=== PATIENT | male | born 1970 | race Caucasian/White ===

== ENCOUNTER 2020-05-24 21:56 | Emergency (ER) | payer OTHER, SELFPAY ==
[2020-05-24 21:59] VITALS: PULSE 85; RESP 18; O2SAT 92; BMI 27.3
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
[2020-05-24 22:11] VITALS: RESP 20
[2020-05-24] MEDS: HYDROmorphone 1 mg/mL INJ 1 mL 2 MG IVP (22:11)
[2020-05-24] MEDS: ondansetron 2 mg/ML SDV 2 mL 4 MG IVP (22:12)
[2020-05-24] MEDS: lactated ringers 1,000 ML 999 ML IV (22:36)
[2020-05-24 22:46] VITALS: BP 153/90; PULSE 73; RESP 17; O2SAT 96
--- NOTE | 2020-05-24 23:16 | PC.NURSE ---
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
== END 2020-05-24 23:20 | disposition short-term general hospital (02) ==
LOC: ER 22:20
PROVIDERS: Emergency Provider Emergency Medicine
DX: T22.211A Burn of second degree of right forearm, initial encounter (principal); T21.02XA Burn of unspecified degree of abdominal wall, initial encounter; W39.XXXA Discharge of firework, initial encounter; T20.00XA Burn of unspecified degree of head, face, and neck, unspecified site, initial encounter; T31.0 Burns involving less than 10% of body surface
CPT/HCPCS: 12345; 96365; 96375; 99282; 99285; J1170; J2405

== ENCOUNTER 2025-06-10 14:16 | Inpatient (IN) | payer OTHER, SELFPAY ==
[2025-06-10] VITALS (35 sets, daily range): BP systolic 58–142; BP diastolic 37–94; PULSE 75–94; RESP 10–20; TEMP 36.4; O2SAT 84–100
--- NOTE | 2025-06-10 14:28 | XRR_ITS ---
PROCEDURE INFORMATION: Exam: XR Chest Exam date and time: 06/10/2025 2:33 PM Age: 54 years old Clinical indication: Other: AMS; Additional info: Possible sepsis TECHNIQUE: Imaging protocol: Radiologic exam of the chest. Views: 1 view. COMPARISON: No relevant prior studies available. FINDINGS: Lungs: Unremarkable. No consolidation. Pleural spaces: Unremarkable. No pleural effusion. No pneumothorax. Heart/Mediastinum: Unremarkable. No cardiomegaly. Bones/joints: Unremarkable. XR/XR chest 1V portable [id number] IMPRESSION: No acute findings.
--- NOTE | 2025-06-10 14:28 | CT_ITS ---
WS: [id number] CT HEAD NONCONTRAST HISTORY: ams TECHNIQUE: Contiguous axial imaging performed through the brain. Bone and soft tissue windows. Sagittal and coronal reformats reviewed. All CT scans at [facility] use at least one of these dose optimization techniques: automated exposure control; mA and/or kV adjustment per patient size (includes targeted exams where dose is matched to clinical indication); or iterative reconstruction. DLP: 1352.90 mGy.cm COMPARISON: None available. No acute intracranial hemorrhage, midline shift or mass effect. No atrophy or prior infarcts or herniation. Tiny lacunar infarct in the RIGHT basal ganglia. Ventricles: Normal size with no hydrocephalus. Paranasal sinuses: As visualized are clear. Mastoid air cells: Well pneumatized. Calvarium and scalp: Skull is intact with no soft tissue edema or swelling. CT/CT head wo con* [id number] IMPRESSION: Unremarkable CT head. No acute intracranial edema or hemorrhage.
--- NOTE | 2025-06-10 14:29 | ECG_ITS ---
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 Measurements Intervals [place] Rate: 76 P: 56 VT: 154 QRS: 29 QRSD: 119 T: 39 QT: 417 QTc: 472 Interpretive Statements SINUS RHYTHM MODERATE INTRAVENTRICULAR CONDUCTION DELAY [110+ ms QRS DURATION] No previous ECG available for comparison Electronically Signed On 06-10-2025 16:53:30 CDT by Karen Jaramillo M.D. [email or web address] [id number]
--- NOTE | 2025-06-10 14:31 | W.ED.AMS ---
HPI - Altered Mental Status General: Chief Complaint: Altered Mental Status Stated Complaint: AMS Time Seen by Provider: 06/10/25 14:17 Source: patient, family and EMS Mode of arrival: EMS Limitations: altered mental status History of Present Illness: 54-year-old male who was sent here from the [place] clinic for altered mental status. Patient states that he has felt very weak and dizzy since yesterday he is very lethargic. He is able to tell me his name where he is lives he is confused he did state that he was in 2021. History of chronic kidney disease along with diabetes patient was hypotensive with EMS is hypotensive here as well. He denies vomiting or diarrhea. Related Data Home Medications ?Medication ?Instructions ?Recorded ?Confirmed celecoxib 100 mg capsule (Celebrex) 100 mg PO DAILY 06/10/25 06/10/25 cetirizine 10 mg tablet 10 mg PO DAILY 06/10/25 06/10/25 ferrous gluconate 324 mg (38 mg 324 mg PO DAILY 06/10/25 06/10/25 iron) tablet fluticasone propionate 50 1 spray intranasal DAILY 06/10/25 06/10/25 mcg/actuation nasal spray,suspension lisinopril 10 mg tablet 10 mg PO DAILY 06/10/25 06/10/25 metformin 500 mg tablet,extended 1,000 mg PO DAILY 06/10/25 06/10/25 release 24 hr multivitamin 1 tab PO QAM 06/10/25 06/10/25 omeprazole 40 mg capsule,delayed 40 mg PO QAM 06/10/25 06/10/25 release potassium chloride 20 mEq 10 meq PO DAILY 06/10/25 06/10/25 tablet,extended release pregabalin 75 mg capsule (Lyrica) 75 mg PO BID 06/10/25 06/10/25 ropinirole 1 mg tablet 1 mg PO BEDTIME PRN restless leg 06/10/25 06/10/25 syndrome rosuvastatin 10 mg tablet 10 mg PO QPM 06/10/25 06/10/25 sertraline 100 mg tablet 200 mg PO QAM 06/10/25 06/10/25 Allergies Allergy/AdvReac Type Severity Reaction Status Date / Time No Known Allergies Allergy Verified 05/24/20 22:14 [facility] ED PFS: Medical History (Updated 06/10/25 @ 19:58 by Monique Ivan MD) No pertinent past medical history Surgical History (Updated 05/24/20 @ 22:05 by Yeny Bejarano) History of lung surgery Physical Exam Const: COMMON NORMALS: alert ORIENTATION/CONSCIOUSNESS: Yes oriented to person and Yes oriented to place; not oriented to time OTHER: Lethargic able to tell me his name where he is from he is confused on the year HENMT: COMMON NORMALS: normocephalic and atraumatic HEAD & SCALP: normocephalic and atraumatic Eye: COMMON NORMALS: conjunctivae normal CONJUNCTIVA: Yes conjunctivae normal Neck/C-Spine: COMMON NORMALS: full ROM and supple Chest: COMMONS NORMALS: normal inspection of the chest Resp: COMMON NORMALS: normal respiratory effort, No retractions, No use of accessory muscles and clear to auscultation bilaterally AUSCULTATION: clear to auscultation bilaterally Cardio: COMMON NORMALS: regular rate, regular rhythm and No murmurs present (Cardio) RATE: regular rate RHYTHM: regular rhythm GI: COMMON NORMALS: Normal to inspection, nondistended, normoactive bowel sounds present, Soft to palpation, non-tender and no masses PALPATION: Yes Soft to palpation Extremity: COMMON NORMALS: normal to inspection and full ROM Neuro: COMMON NORMALS: moves all extremities and no focal motor deficits SENSORIUM/ORIENTATION: Yes alert, Yes oriented to person, Yes oriented to place and No oriented to time SPEECH: speech normal MOTOR EXAM: 5/5 motor strength present throughout Psych: COMMON NORMALS: mental status grossly normal, Normal thought process present and cooperative THOUGHT PROCESS: Normal thought process present Skin: COMMON NORMALS: no rashes or lesions noted and no wounds GENERAL SKIN EXAM: no rashes or lesions noted Course Vital Signs: Vital signs: Vital Signs Temperature 97.6 F 06/10/25 14:21 Pulse Rate 80 06/10/25 18:30 Respiratory Rate 15 06/10/25 18:30 Blood Pressure 82/49 06/10/25 18:30 Pulse Oximetry 100 06/10/25 18:30 Oxygen Delivery Me thod Room Air 06/10/25 15:02 Oxygen Flow Rate 3 06/10/25 14:50 MDM - Altered Mental Status Medical Decision Making Patient presents here with altered mental status his mentation has improved here was hypotensive blood pressures improved with fluids along with Levophed no signs of definite infection does have acute renal failure likely causing his hypotension. He is making urine after fluids likely dehydrated. I spoke to the hospitalist will admit at this time. Also consulted nephrology Medical Records I reviewed the patient's medical records. Lab Data I reviewed the patient's lab results. 06/10/25 15:29 06/10/25 17:23 Radiology Impressions Chest X-Ray 06/10/25 14:28 IMPRESSION: No acute findings. Head CT 06/10/25 14:28 IMPRESSION: Unremarkable CT head. No acute intracranial edema or hemorrhage. Abdomen/Pelvis CT 06/10/25 16:15 IMPRESSION: 1. No obstructive uropathy. 2. Nonobstructive bilateral nephrolithiasis. 3. Notiveros catheter is appropriately positioned. Bladder is decompressed, limiting assessment of the wall. 4. Marked pancreatic atrophy and calcification consistent with chronic pancreatitis. Laboratory Results WBC 5.70 10^3/uL (3.29-11.43) 06/10/25 15:29 Corrected WBC Cancelled 06/10/25 15:07 RBC 3.87 10^6/uL (3.85-5.65) 06/10/25 15:29 Hgb 10.90 g/dL (11.27-16.99) L 06/10/25 15:29 Hct 33.8 % (37-53) L 06/10/25 15:29 MCV 87.3 fl (82-101) 06/10/25 15:29 MCH 28.2 pg (27-33) 06/10/25 15:29 MCHC 32.2 g/dL (30-55) 06/10/25 15:29 RDW 14.2 % (12.1-15.1) 06/10/25 15:29 Plt Count 205 10^3/cmm (157-399) 06/10/25 15:29 MPV 10.6 fL (7.4-10.4) H 06/10/25 15:29 Gran % Cancelled 06/10/25 15:07 Neut % (Auto) 77.0 % 06/10/25 15:29 Lymph % (Auto) 14.9 % 06/10/25 15:29 [place]ardo % (Auto) 5.8 % 06/10/25 15:29 Eos % (Auto) 1.2 % 06/10/25 15:29 Baso % (Auto) 0.7 % 06/10/25 15:29 Neut # (Auto) 4.39 10^3/uL (1.8-7.7) 06/10/25 15: Lymph # (Auto) 0.9 10^3/uL (0.8-4.8) 06/10/25 15: [place] # (Auto) 0.3 10^3/uL (0.2-0.9) 06/10/25 15: Eos # (Auto) 0.1 10^3/uL (0.0-0.8) 06/10/25 15: Baso # (Auto) 0.0 10^3/uL (0.0-0.1) 06/10/25 15: Absolute Gran (auto) Cancelled 06/10/25 15:07 Nucleated RBC % (auto) 0 % 06/10/25 15: Nucleated RBCs # 0.0 /100WBC 06/10/25 15: PT 53.70 SECONDS (12.1-14.9) H 06/10/25 15: INR 5.64 (0.8-1.2) H* 06/10/25 15:29 Specimen Type Arterial 06/10/25 14:55 Sample Site Brachial, right 06/10/25 14:55 ABG pH 7.12 (7.35-7.45) L* 06/10/25 14:55 ABG pCO2 34.0 mmHg (35-45) L 06/10/25 14:55 ABG pO2 120.0 mmHg (80.0-100.0) H 06/10/25 14:55 ABG PO2/FiO2 Ratio 571 06/10/25 14:55 ABG HCO3 11.1 mmol/L (22-26) L 06/10/25 14:55 ABG Base Excess -17.0 mmol/L (-2.0-2.0) L 06/10/25 14:55 Jimmy Test N/a 06/10/25 14:55 Hematocrit 34.1 % (42-52) L 06/10/25 14:55 Hgb O2 Saturation 96.8 % (95-100) 06/10/25 14:55 Carboxyhemoglobin 0.4 %THgb (0.4-20.1) 06/10/25 14:55 Methemoglobin 0.8 % (0.4-1.5) 06/10/25 14:55 Total Hemoglobin 11.1 g/dL (14-18) L 06/10/25 14:55 O2 Delivery Device Room air 06/10/25 14:55 FiO2 21.0 % 06/10/25 14:55 Lift Operator ID glc 06/10/25 14:55 Sodium 140 mmol/L (136-145) 06/10/25 17:23 Potassium 5.3 mmol/L (3.5-5.1) H 06/10/25 17:23 Chloride 103 mmol/L (98-107) 06/10/25 17:23 Carbon Dioxide 11 mmol/L (22-29) L 06/10/25 17:23 Anion Gap 31.3 (5-19) H 06/10/25 17:23 BUN 81 mg/dL (6-20) H 06/10/25 17:23 Creatinine 10.9 mg/dL (0.7-1.2) H* 06/10/25 17:23 GFR Calculation 5.0 mL/min (90-130) L 06/10/25 17:23 Glucose 112 mg/dL (65-115) 06/10/25 17:23 Calculated Osmolality 315 mOsm/kg (285-295) H 06/10/25 17:23 Lactic Acid Cancelled 06/10/25 15:07 Lactate 0.8 mmol/L (0.5-2.2) 06/10/25 15:29 Calcium 6.9 mg/dL (8.5-10.5) L 06/10/25 17:23 Magnesium 1.8 mg/dL (1.7-2.3) 06/10/25 17:23 Total Bilirubin 0.2 mg/dL (0.15-1.2) 06/10/25 17:23 AST 15 U/L (0-40) 06/10/25 17:23 ALT 15 U/L (0-41) 06/10/25 17:23 Alkaline Phosphatase 100 U/L (40-130) 06/10/25 17:23 Ammonia 40 umol/L (16-60) 06/10/25 17:23 Creatine Kinase 153 U/L (39-308) 06/10/25 17:23 Troponin T Baseline 133 ng/L (0-15) H* 06/10/25 15:29 Troponin T 120 Minute 126.3 ng/L (0-15) H 06/10/25 17:23 Delta Troponin T -6.7 ABS# (0-10) L 06/10/25 17:23 Total Protein 5.7 g/dL (6.6-8.7) L 06/10/25 17:23 Albumin 3.2 g/dL (3.5-5.2) L 06/10/25 17:23 Globulin 2.5 g/dL (1.3-4.6) 06/10/25 17: TSH 0.96 uIU/mL (0.27-4.20) 06/10/25 17:23 Urine Color Red (Yellow) A 06/10/25 15: Urine Appearance Turbid (CLEAR) A 06/10/25 15: Urine pH 5.0 (5-7) 06/10/25 15: Ur Specific [place] 1.025 (1.005-1.030) 06/10/25 15:29 Urine Protein 3+ (Negative) A 06/10/25 15:29 Urine Glucose (UA) Trace (Normal) H 06/10/25 15: Urine Ketones Trace (Negative) 06/10/25 15: Urine Blood 3+ (Negative) A 06/10/25 15:29 Urine Nitrate Negative (Negative) 06/10/25 15: Urine Bilirubin Negative (Negative) 06/10/25 15: Urine Urobilinogen 0.2 mg/dL (Negative) 06/10/25 15:29 Ur Leukocyte Esterase 1+ (Negative) A 06/10/25 15:29 Urine RBC >100 /hpf (0-2) H 06/10/25 15:29 Urine WBC 11-20 /hpf (0-5) H 06/10/25 15:29 Ur Squamous Epith Cells 0-5 /hpf (0-5) 06/10/25 15:29 Amorphous Sediment Not Reportable 06/10/25 15:29 Urine Bacteria None seen /hpf (NONE) 06/10/25 15:29 Hyaline Casts 35.98 /lpf 06/10/25 15:29 Urine Opiates Screen Negative ng/mL (Negative) 06/10/25 15:29 Ur Barbiturates Screen Negative ng/mL (Negative) 06/10/25 15:29 Ur Phencyclidine Scrn Negative ng/mL (Negative) 06/10/25 15:29 Ur Amphetamines Screen Positive ng/mL (Negative) H 06/10/25 15:29 U Benzodiazepines Scrn Negative ng/mL (Negative) 06/10/25 15:29 Urine Cocaine Screen Negative ng/mL (Negative) 06/10/25 15:29 U Marijuana (THC) Screen Negative ng/mL (Negative) 06/10/25 15:29 Ethyl Alcohol < 10 mg/dL (0-10) 06/10/25 17:23 All radiology interpretation(s) finalized by discharge EKG Data EKG 1: I personally reviewed and interpreted this EKG as follows: EKG interpretation date: 06/10/25 EKG interpretation time: 15:01 Interpretation: nsr hr [address] elevation qrs 119 qtc 448 Discharge Plan Discharge Patient Disposition: Admitted As Inpatient Admit Provider: Estefany Gan Clinical Impression: Altered mental status, Acute renal failure, Metabolic acidosis Condition: Stable Coding Level of Care Code ED Spice Blender for Chg Sharif
--- NOTE | 2025-06-10 15:03 | PC.NURSE ---
PATIENT PLACED ON 3 L NC DUE TO LOWER O2 SATURATION.
[2025-06-10 15:07] LABS: ABG PCO2 34.0 mmHg (35-45); Arterial Blood Gas Hematocrit 34.1 % (42-52); Blood Gas Operator Identificat glc; Blood Gas Sample Site Brachial, right; Blood Gas Sample Type Arterial; Carboxyhemoglobin 0.4 %THgb (0.4-20.1); HCO3 ABG 11.1 mmol/L (22-26); Methemoglobin 0.8 % (0.4-1.5); PO2 ABG 120.0 mmHg (80.0-100.0); PO2 FiO2 Ratio Arterial Blood 571
[2025-06-10 15:09] LABS: ABG PH Result 7.12 (7.35-7.45)
--- NOTE | 2025-06-10 15:19 | PC.PHAR ---
[facility] 06/10/25 3:17pm
[2025-06-10 15:39] LABS: Hematocrit 33.8 % (37-53); Hemoglobin 10.90 g/dL (11.27-16.99); Mean Corpuscular HGB Conc 32.2 g/dL (30-55); Mean Corpuscular Hemoglobin 28.2 pg (27-33); Mean Corpuscular Volume 87.3 fl (82-101); Nucleated Red Blood Cells % 0 %; Platelet Count 205 10^3/cmm (157-399); Red Blood Count 3.87 10^6/uL (3.85-5.65); White Blood Count 5.70 10^3/uL (3.29-11.43)
[2025-06-10 15:43] LABS: Glucose Urine UA Trace (Normal); Nitrate Urine Negative (Negative); Specific Gravity, Urine 1.025 (1.005-1.030)
[2025-06-10] MEDS: piperacillin-tazobactam 3.375 GM in sodium chloride 0.9% (plus) 50 ML IV (15:45)
[2025-06-10 15:46] LABS: Add Urine Microscopic? YES
[2025-06-10 15:50] LABS: PCP Screen Urine Negative (Negative)
[2025-06-10] MEDS: VANCOMYCIN ADD-Vantage 1,000 MG in 0.9% NaCl ADD-Vantage 250 ML 250 MG IV (15:53)
[2025-06-10 15:54] LABS: Prothrombin Time 53.70 SECONDS (12.1-14.9)
[2025-06-10 16:01] LABS: Lactate (Lactic Acid level) 0.8 mmol/L (0.5-2.2)
[2025-06-10 16:04] LABS: Troponin(5th) Baseline 133 ng/L (0-15)
[2025-06-10 16:11] LABS: UA Slide Review UA Slide Review Perf
--- NOTE | 2025-06-10 16:15 | CTR_ITS ---
PROCEDURE INFORMATION: Exam: CT Abdomen And Pelvis Without Contrast Exam date and time: 06/10/2025 4:58 PM Age: 54 years old Clinical indication: Other: Hematuria TECHNIQUE: Imaging protocol: Computed tomography of the abdomen and pelvis without contrast. Radiation optimization: All CT scans at this facility use at least one of these dose optimization techniques: automated exposure control; mA and/or kV adjustment per patient size (includes targeted exams where dose is matched to clinical indication); or iterative reconstruction. COMPARISON: CR XR chest 1V portable [id number] 06/10/2025 2:33 PM RADIATION DOSE METRICS: Total DLP (mGy-cm): 503.43 FINDINGS: Lungs: There is subsegmental atelectasis in the lung bases. Liver: The liver is normal. Gallbladder and biliary ducts: The gallbladder is normal. There is no biliary dilation. Pancreas: There is marked atrophy of the pancreas. There is multifocal dystrophic calcification in the pancreatic parenchyma. There is moderate diffuse dilation of the pancreatic duct measuring up to 7 mm in the neck. No sign of acute pancreatic inflammation. Spleen: The spleen is unremarkable. Adrenal glands: The adrenal glands are unremarkable. Kidneys and ureters: There are multiple 3-5 mm nonobstructive stones in both kidneys. There is no hydronephrosis or ureteral dilation. No ureteral stones. Stomach and bowel: The stomach is unremarkable. The small bowel is nondilated. The colon is unremarkable. Appendix: The appendix is normal. Intraperitoneal space: There is no free air or significant intraperitoneal free fluid. Vasculature: There is moderate aortic atherosclerotic disease. Lymph nodes: There is no lymphadenopathy in the retroperitoneum, mesentery, pelvis or inguinal regions. Urinary bladder: The bladder is decompressed. The Ontiveros catheter is appropriately positioned with the bulb and tip within the bladder lumen. Reproductive: The prostate and seminal vesicles are unremarkable. Bones/joints: There is mild degenerative disease in the lumbar spine. The pelvis and hips are unremarkable. Soft tissues: The abdominal wall is intact. CT/CT kidney stone [id number] IMPRESSION: 1. No obstructive uropathy. 2. Nonobstructive bilateral nephrolithiasis. 3. Ontiveros catheter is appropriately positioned. Bladder is decompressed, limiting assessment of the wall. 4. Marked pancreatic atrophy and calcification consistent with chronic pancreatitis.
--- NOTE | 2025-06-10 16:30 | ECG_ITS ---
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 Measurements Intervals [place] Rate: 82 P: 61 [place]: 180 QRS: 26 QRSD: 117 T: 45 QT: 413 QTc: 485 Interpretive Statements SINUS RHYTHM MODERATE INTRAVENTRICULAR CONDUCTION DELAY [110+ ms QRS DURATION] Compared to ECG 06/10/2025 15:01:27 No significant changes Electronically Signed On 06-10-2025 17:05:08 CDT by Karen Jaramillo M.D. [email or web address]
[2025-06-10 18:09] LABS: INR 5.64 (0.8-1.2)
[2025-06-10] MEDS: norepinephrine 4 MG/250 ML BAG 30 MG IV (18:23)
[2025-06-10 18:25] LABS: Alanine Aminotransferase 15 U/L (0-41); Albumin Level 3.2 g/dL (3.5-5.2); Alkaline Phosphatase 100 U/L (40-130); Calcium 6.9 mg/dL (8.5-10.5); Carbon Dioxide 11 mmol/L (22-29); Chloride 103 mmol/L (98-107); Creatinine Clr Calc Pharmacy 7.7756; Globulin 2.5 g/dL (1.3-4.6); Glucose 112 mg/dL (65-115); Magnesium 1.8 mg/dL (1.7-2.3); Osmolality Calculated 315 mOsm/kg (285-295); Sodium 140 mmol/L (136-145); Thyroid Stimulating Hormone 0.96 uIU/mL (0.27-4.20); Total Protein 5.7 g/dL (6.6-8.7)
[2025-06-10 18:26] LABS: Troponin 5 2HR 126.3 ng/L (0-15); Troponin 5 2HR Delta -6.7 ABS# (0-10)
[2025-06-10 18:30] LABS: Ammonia 40 umol/L (16-60)
[2025-06-10 18:43] LABS: Alcohol Level < 10 mg/dL (0-10); Blood Urea Nitrogen 81 mg/dL (6-20)
[2025-06-10 18:44] LABS: Anion Gap 31.3 (5-19); Potassium 5.3 mmol/L (3.5-5.1)
[2025-06-10 18:45] LABS: Aspartate Amino Transferase 15 U/L (0-40)
--- NOTE | 2025-06-10 20:28 | USR_ITS ---
PROCEDURE INFORMATION: Exam: US Retroperitoneal, Complete, Kidneys and Bladder Exam date and time: 06/10/2025 8:39 PM Age: 54 years old Clinical indication: Other: Elevated bun and creatinine; Additional info: Rayray TECHNIQUE: Imaging protocol: Real-time ultrasound of the retroperitoneum with image documentation. Complete exam focused on the bilateral kidneys and urinary bladder. COMPARISON: CT kidney stone [id number] 06/10/2025 4:58 PM FINDINGS: Right kidney: The right kidney is unremarkable. Cortical thickness and echotexture is normal. There is no hydronephrosis. No visible stones. The right kidney measures 9.5 cm in length. Left kidney: The left kidney is unremarkable. Cortical thickness and echotexture is normal. There is no hydronephrosis. No visible stones. The left kidney measures 10.6 cm in length. Urinary bladder: The bladder is nondistended. There is a Ontiveros catheter bulb in the bladder lumen. US/US renal BI* [id number] IMPRESSION: No pathologic findings. Known bilateral renal stones are not visible on this exam.
--- NOTE | 2025-06-10 21:47 | PM.HP ---
Providers/Chief Complaint Admitting Physician: Estefany Gan MD Primary Care Provider: KYLIE Duncan Chief Complaint: AMS History of Present Illness Olivier Isaac is a 54 year old male with a past medical history of diabetes mellitus reports being on metformin and insulin, hypertension on lisinopril, dyslipidemia, history of substance abuse, presenting to the emergency room with complaints of generalized weakness over the past 2 to 3 days, found to be confused and altered upon presenting to the [place] [facility] earlier today. Patient states he had been feeling weak and lethargic for the past 2 to 3 days. Patient was hypotensive upon arrival with a blood pressure of 58/37 mmHg. This is improved to 129/60 mmHg at the time of my assessment after having received IV fluid bolus and being started on Levophed in the emergency room. He denies any recent cough, chest pain, dyspnea, abdominal pain nausea vomiting or diarrhea. Has a history of nephrolithiasis, however on CT today he is not found to have any gross obstruction. Labs in the emergency room were notable for acute renal failure with creatinine at 10.1, findings of metabolic acidosis and hyperkalemia. Patient states he has been working outdoors over the past 2 to 3 days. He denies any recent IV drug use, however his family is bedside reports he was around other family members that were abusing meth this past Tuesday. Review of Systems General: Reports: 10 or more systems reviewed and unremarkable except in HPI and below Const: Denies: fever(s), chills or body aches Eyes: Denies: change in vision, blurry vision or photophobia ENMT: Reports: hoarseness; Denies: throat pain, enlarged tonsils, odynophagia or nasal congestion Card: Denies: chest pain, palpitations, irregular heart rhythm, edema, swelling of feet/ankles, lightheadedness, pre-syncope, dyspnea on exertion or orthopnea Resp: Denies: dyspnea, productive cough, non-productive cough, wheezing, stridor, pain on inspiration, change in phlegm color, hemoptysis or chest congestion GI: Denies: abdominal pain, nausea, vomiting, hematemesis, coffee ground emesis, dysphagia, heartburn, diarrhea, constipation, GI cramping, change in stool character, hematochezia or melena : Denies: flank pain, dysuria, urinary frequency, urinary urgency, urinary hesitancy or hematuria Musc: Denies: neck pain, back pain, extremity pain, joint swelling, joint warmth or deformity Neuro: Denies: headache(s), numbness in extremities, weakness in extremities, sensory changes, difficulty walking, frequent falls, dizziness, vertigo, behavioral changes, Slurred speech present or seizure-like activity Psych: Denies: anxiety, depression, suicidal ideation or homicidal ideation Endo: Denies: polyuria, polydipsia, tired all the time, cold intolerance or hot flashes Scott/Lymph: Denies: easy bruising or easy bleeding Medications/Allergies Home Medications ?Medication ?Instructions ?Recorded ?Confirmed ?Last Taken ?Type celecoxib 100 mg capsule (Celebrex) 100 mg PO DAILY 06/10/25 06/10/25 06/10/25 History cetirizine 10 mg tablet 10 mg PO DAILY 06/10/25 06/10/25 06/10/25 History ferrous gluconate 324 mg (38 mg 324 mg PO DAILY 06/10/25 06/10/25 06/10/25 History iron) tablet fluticasone propionate 50 1 spray intranasal DAILY 06/10/25 06/10/25 06/10/25 History mcg/actuation nasal spray,suspension lisinopril 10 mg tablet 10 mg PO DAILY 06/10/25 06/10/25 06/10/25 History metformin 500 mg tablet,extended 1,000 mg PO DAILY 06/10/25 06/10/25 06/10/25 History release 24 hr multivitamin 1 tab PO QA 06/10/25 06/10/25 06/10/25 History omeprazole 40 mg capsule,delayed 40 mg PO QAM 06/10/25 06/10/25 06/10/25 History release potassium chloride 20 mEq 10 meq PO DAILY 06/10/25 06/10/25 06/10/25 History tablet,extended release pregabalin 75 mg capsule (Lyrica) 75 mg PO BID 06/10/25 06/10/25 06/10/25 History ropinirole 1 mg tablet 1 mg PO BEDTIME PRN restless leg 06/10/25 06/10/25 Unknown History syndrome rosuvastatin 10 mg tablet 10 mg PO QPM 06/10/25 06/10/25 06/09/25 History sertraline 100 mg tablet 200 mg PO QAM 06/10/25 06/10/25 06/10/25 History Allergies Allergy/AdvReac Type Severity Reaction Status Date / Time No Known Allergies Allergy Verified 05/24/20 22:14 PFSH Acute PFSH: Medical History (Updated 06/11/25 @ 01:07 by Estefany Gan MD) No pertinent past medical history Surgical History (Updated 05/24/20 @ 22:05 by Yeny Bejarano) History of lung surgery Vitals/I&O/Wt Last Vital Signs Temp 97.6 F 06/10/25 14:21 Pulse 90 06/10/25 20:14 Resp 16 06/10/25 20:14 BP 124/59 06/10/25 20:14 Pulse Ox 98 06/10/25 20:14 O2 Del Method Room Air 06/10/25 15:02 O2 Flow Rate 3 06/10/25 14:50 06/10/25 06/10/25 06/10/25 06:59 14:59 22:59 Intake Total 3422.8 / 3422.8 Balance 3422.8 / 3422.8 Weight last 48 hrs Weight 70.76 kg Physical Exam Narrative: General: ill appearing, dehydrated, AO x3 HEENT: PERRLA, pupils bilaterally equal and reactive, pallors not present Chest: Normal vesicular breath sounds, no added sounds, equal good air entry bilaterally CVS: S1-S2 regular, no murmurs, no tachycardia, no gallops, no rubs Abdomen: Soft, nontender, no organomegaly, bowel sounds present Neuro: No focal deficits, no facial deformity, moves all extremities in bed Extremities: No edema clubbing or cyanosis Urinary Catheter Management: Ontiveros: Cath Placed During This Visit: yes Reason for Continuing Indwelling Catheter: Acute Urinary Retention or Obstruction Urinary Catheter Date of Insertion: 06/10/25 Urinary Catheter Time of Insertion: 15:33 Data 06/10/25 15:29 06/10/25 22:57 Micro: Microbiology 06/10/25 14:57 Blood Culture - Preliminary Blood SPECIMEN COLLECTED 06/10/25 15:07 Blood Culture - Preliminary Blood SPECIMEN COLLECTED Other data: Radiology Impressions Chest X-Ray 06/10/25 14:28 IMPRESSION: No acute findings. Head CT 06/10/25 14:28 IMPRESSION: Unremarkable CT head. No acute intracranial edema or hemorrhage. Abdomen/Pelvis CT 06/10/25 16:15 IMPRESSION: 1. No obstructive uropathy. 2. Nonobstructive bilateral nephrolithiasis. 3. Ontiveros catheter is appropriately positioned. Bladder is decompressed, limiting assessment of the wall. 4. Marked pancreatic atrophy and calcification consistent with chronic pancreatitis. Renal Ultrasound 06/10/25 20:28 IMPRESSION: No pathologic findings. Known bilateral renal stones are not visible on this exam. Laboratory Results WBC 5.70 10^3/uL (3.29-11.43) 06/10/25 15:29 Corrected WBC Cancelled 06/10/25 15:07 RBC 3.87 10^6/uL (3.85-5.65) 06/10/25 15:29 Hgb 10.90 g/dL (11.27-16.99) L 06/10/25 15:29 Hct 33.8 % (37-53) L 06/10/25 15:29 MCV 87.3 fl (82-101) 06/10/25 15:29 MCH 28.2 pg (27-33) 06/10/25 15:29 MCHC 32.2 g/dL (30-55) 06/10/25 15:29 RDW 14.2 % (12.1-15.1) 06/10/25 15:29 Plt Count 205 10^3/cmm (157-399) 06/10/25 15:29 MPV 10.6 fL (7.4-10.4) H 06/10/25 15:29 Gran % Cancelled 06/10/25 15:07 Neut % (Auto) 77.0 % 06/10/25 15:29 Lymph % (Auto) 14.9 % 06/10/25 15:29 [place] % (Auto) 5.8 % 06/10/25 15:29 Eos % (Auto) 1.2 % 06/10/25 15:29 Baso % (Auto) 0.7 % 06/10/25 15:29 Neut # (Auto) 4.39 10^3/uL (1.8-7.7) 06/10/25 15:29 Lymph # (Auto) 0.9 10^3/uL (0.8-4.8) 06/10/25 15:29 [place] # (Auto) 0.3 10^3/uL (0.2-0.9) 06/10/25 15:29 Eos # (Auto) 0.1 10^3/uL (0.0-0.8) 06/10/25 15: Baso # (Auto) 0.0 10^3/uL (0.0-0.1) 06/10/25 15:29 Absolute Gran (auto) Cancelled 06/10/25 15:07 Nucleated RBC % (auto) 0 % 06/10/25 15: Nucleated RBCs # 0.0 /100WBC 06/10/25 15:29 PT 53.70 SECONDS (12.1-14.9) H 06/10/25 15: INR 5.64 (0.8-1.2) H* 06/10/25 15:29 Specimen Type Arterial 06/10/25 14:55 Sample Site Brachial, right 06/10/25 14:55 ABG pH 7.12 (7.35-7.45) L* 06/10/25 14:55 ABG pCO2 34.0 mmHg (35-45) L 06/10/25 14:55 ABG pO2 120.0 mmHg (80.0-100.0) H 06/10/25 14:55 ABG PO2/FiO2 Ratio 571 06/10/25 14:55 ABG HCO3 11.1 mmol/L (22-26) L 06/10/25 14:55 ABG Base Excess -17.0 mmol/L (-2.0-2.0) L 06/10/25 14:55 Jimmy Test N/a 06/10/25 14:55 Hematocrit 34.1 % (42-52) L 06/10/25 14:55 Hgb O2 Saturation 96.8 % (95-100) 06/10/25 14:55 Carboxyhemoglobin 0.4 %THgb (0.4-20.1) 06/10/25 14:55 Methemoglobin 0.8 % (0.4-1.5) 06/10/25 14:55 Total Hemoglobin 11.1 g/dL (14-18) L 06/10/25 14:55 O2 Delivery Device Room air 06/10/25 14:55 FiO2 21.0 % 06/10/25 14:55 Adjunct Physics Instructor ID glc 06/10/25 14:55 Sodium 135 mmol/L (136-145) L 06/10/25 22:57 Potassium 5.4 mmol/L (3.5-5.1) H 06/10/25 22:57 Chloride 100 mmol/L (98-107) 06/10/25 22:57 Carbon Dioxide 12 mmol/L (22-29) L 06/10/25 22:57 Anion Gap 28.4 (5-19) H 06/10/25 22:57 BUN 82 mg/dL (6-20) H* 06/10/25 22:57 Creatinine 10.4 mg/dL (0.7-1.2) H* 06/10/25 22:57 GFR Calculation 5.3 mL/min (90-130) L 06/10/25 22:57 Glucose 171 mg/dL (65-115) H 06/10/25 22:57 Calculated Osmolality 309 mOsm/kg (285-295) H 06/10/25 22:57 Lactic Acid Cancelled 06/10/25 15:07 Lactate 0.8 mmol/L (0.5-2.2) 06/10/25 15:29 Calcium 7.8 mg/dL (8.5-10.5) L 06/10/25 22:57 Phosphorus 9.2 mg/dL (2.5-4.5) H* 06/10/25 22:57 Magnesium 1.8 mg/dL (1.7-2.3) 06/10/25 17:23 Total Bilirubin 0.2 mg/dL (0.15-1.2) 06/10/25 17:23 AST 15 U/L (0-40) 06/10/25 17:23 ALT 15 U/L (0-41) 06/10/25 17:23 Alkaline Phosphatase 100 U/L (40-130) 06/10/25 17:23 Ammonia 40 umol/L (16-60) 06/10/25 17:23 Creatine Kinase 199 U/L (39-308) 06/10/25 22:57 Troponin T Baseline 133 ng/L (0-15) H* 06/10/25 15:29 Troponin T 120 Minute 126.3 ng/L (0-15) H 06/10/25 17:23 Delta Troponin T -6.7 ABS# (0-10) L 06/10/25 17:23 Troponin T Hi Sens 6Hr 116.6 ng/L (0-15) H 06/10/25 22:57 Troponin T Hi Sens 6Hr Delta -16.4 ng/L (0-12) L 06/10/25 22:57 Total Protein 5.7 g/dL (6.6-8.7) L 06/10/25 17:23 Albumin 3.2 g/dL (3.5-5.2) L 06/10/25 17:23 Globulin 2.5 g/dL (1.3-4.6) 06/10/25 17:23 TSH 0.96 uIU/mL (0.27-4.20) 06/10/25 17:23 Urine Color Red (Yellow) A 06/10/25 15: Urine Appearance Turbid (CLEAR) A 06/10/25 15: Urine pH 5.0 (5-7) 06/10/25 15:29 Ur Specific [place] 1.025 (1.005-1.030) 06/10/25 15: Urine Protein 3+ (Negative) A 06/10/25 15:29 Urine Glucose (UA) Trace (Normal) H 06/10/25 15:29 Urine Ketones Trace (Negative) 06/10/25 15: Urine Blood 3+ (Negative) A 06/10/25 15: Urine Nitrate Negative (Negative) 06/10/25 15: Urine Bilirubin Negative (Negative) 06/10/25 15:29 Urine Urobilinogen 0.2 mg/dL (Negative) 06/10/25 15:29 Ur Leukocyte Esterase 1+ (Negative) A 06/10/25 15:29 Urine RBC >100 /hpf (0-2) H 06/10/25 15:29 Urine WBC 11-20 /hpf (0-5) H 06/10/25 15:29 Ur Squamous Epith Cells 0-5 /hpf (0-5) 06/10/25 15: Amorphous Sediment Not Reportable 06/10/25 15:29 Urine Bacteria None seen /hpf (NONE) 06/10/25 15:29 Hyaline Casts 35.98 /lpf 06/10/25 15:29 U Random Total Protein 24 mg/dL 06/10/25 21:53 Urine Creatinine 65 mg/dL (39-259) 07/21/25 21:53 Urine Opiates Screen Negative ng/mL (Negative) 06/10/25 15:29 Ur Barbiturates Screen Negative ng/mL (Negative) 06/10/25 15:29 Ur Phencyclidine Scrn Negative ng/mL (Negative) 06/10/25 15:29 Ur Amphetamines Screen Positive ng/mL (Negative) H 06/10/25 15:29 U Benzodiazepines Scrn Negative ng/mL (Negative) 06/10/25 15:29 Urine Cocaine Screen Negative ng/mL (Negative) 06/10/25 15:29 U Marijuana (THC) Screen Negative ng/mL (Negative) 06/10/25 15:29 Ethyl Alcohol < 10 mg/dL (0-10) 06/10/25 17:23 Complement C3 133 mg/dL (90-180) 06/10/25 22:57 Complement C4 31 mg/dL (10-40) 06/10/25 22:57 A&P Assessment and plan 1. Acute renal failure: Patient with past medical history as outlined above presenting to the hospital today with 2 to 3 days of generalized weakness, altered mentation and lethargy found to have acute renal failure with creatinine at 10.0 with evidence of metabolic acidosis. CT of the abdomen and pelvis without any obstruction along the urinary tract. Has a history of nephrolithiasis, however no obstructing calculus is noted today. Patient states that he has been working outside and may potentially be dehydrated. Baseline creatinine is not available. Patient was hypotensive upon arrival, received 2 L of IV fluid bolus and has been started on sodium bicarbonate infusion at 100 cc an hour. Urine drug screen is positive for methamphetamines, potentially acute renal failure may be related to drug abuse. Hold lisinopril and other nephrotoxic medications. Nephrology has been consulted, appreciate recommendations to add C3-C4, PRITI, ANCA, anti-GBM, urine protein creatinine ratio, SPEP and hepatitis panel Ontiveros catheter placed to measure accurate output. No bladder outlet obstruction encountered. 2. Metabolic acidosis: As a result of acute renal failure 3. Altered mental status: Is currently appears to be improving. Patient is alert awake oriented x 3, able to answer orientation questions and speaks in few short sentences however speaks slowly, needs encouragement. 4. Hyperkalemia: Related to acute renal failure He has received Kayexalate, Will repeat BNP to assess for improvement 5. Diabetes mellitus: Insulin sliding scale low-dose check HbA1c 6. Elevated troponin: Baseline troponin at 126, 6-hour at 116, downtrending at 0216 hrs. EKG without any acute ST-T wave changes Patient denies any chest pain Suspect the troponin elevation is related to acute renal failure Will check echocardiogram to rule out any cardiac abnormality such as cardiomyopathy which may be contributing to renal failure. Clinically patient appearing to be euvolemic at this time 7. Elevated INR: Deranged INR at 5.17 Uncertain etiology at this time CT abdomen without any evidence of cirrhosis. Incidental note made of pancreatitis, however patient and mother both deny any history of chronic pancreatitis. Holding off on anticoagulation for DVT prophylaxis for now until INR improves. 8. Hypotension: May be related to dehydration Urine analysis with greater than 100 RBCs, 3+ blood, 1+ leukocyte Estrace, 11-20 WBCs. Will await urine culture. Patient denies any symptoms of dysuria. Started on ceftriaxone 1 g IV every 24 hours while undergoing infectious source evaluation. Chest x-ray, abdomen pelvis CT without any acute abnormality Pending blood culture Continue IV fluids as noted above. Levophed to maintain MAP greater than 65 mmHg. Plan: DVT prophylaxis: SCDs only, no anticoagulation due to deranged INR Full code PDMP PDMP Reviewed: Not Reviewed Attestations Medical Necessity Statement*: Greater than 2 midnight stay is anticipated Coding Level of Care Code Acute Code for Chg Fwd High MDM includes number and complexity of problems actively addressed during encounter, amount and/or complexity of data reviewed/ordered and described risk of complication, morbidity or mortality of management as documented Diagnoses Acute renal failure N17.9 Metabolic acidosis E87.20 Altered mental status R41.82 Hyperkalemia E87.5 Diabetes mellitus E11.9 Elevated troponin R79.89 Elevated INR R79.1 Hypotension I95.9
--- NOTE | 2025-06-10 21:51 | PM.CONSULT ---
Providers/Reason For Consult Consulting Physician/Specialty*: kommana/Nephrology Reason for Consult*: AXEL Attending Physician: Estefany Gan MD Primary Care Provider: KYLIE Duncan History of Present Illness History of Present Illness Olivier Isaac is a 54 year old male with past medical history of hypertension, diabetes, dyslipidemia, chronic pain, GERD-usually followed at [facility] . He was seen at [facility] today and was noted to be confused and was sent to the ER for further evaluation. No prior labs available in our system. Patient denies having any prior history of CKD. On presentation he was hypotensive currently on Levophed and is admitted to ICU. Lab data is significant for hemoglobin of 10.9, potassium of 5.3 bicarbonate level of 11, creatinine was 10 with a BUN of 81. Patient reports taking Celebrex for the last 6 months about 1 pill a day. Also reports smoking weed joint few days ago and he was told that it could have been laced with meth and since then patient developed severe nausea with poor p.o. intake. Baseline labs not available. Patient's mother at bedside who provided history. Review of Systems Narrative: Other review of systems negative. Medications/Allergies Home Medications ?Medication ?Instructions ?Recorded ?Confirmed ?Last Taken ?Type celecoxib 100 mg capsule (Celebrex) 100 mg PO DAILY 06/10/25 06/10/25 06/10/25 History cetirizine 10 mg tablet 10 mg PO DAILY 06/10/25 06/10/25 06/10/25 History ferrous gluconate 324 mg (38 mg 324 mg PO DAILY 06/10/25 06/10/25 06/10/25 History iron) tablet fluticasone propionate 50 1 spray intranasal DAILY 06/10/25 06/10/25 06/10/25 History mcg/actuation nasal spray,suspension lisinopril 10 mg tablet 10 mg PO DAILY 06/10/25 06/10/25 06/10/25 History metformin 500 mg tablet,extended 1,000 mg PO DAILY 06/10/25 06/10/25 06/10/25 History release 24 hr multivitamin 1 tab PO QAM 06/10/25 06/10/25 06/10/25 History omeprazole 40 mg capsule,delayed 40 mg PO QAM 06/10/25 06/10/25 06/10/25 History release potassium chloride 20 mEq 10 meq PO DAILY 06/10/25 06/10/25 06/10/25 History tablet,extended release pregabalin 75 mg capsule (Lyrica) 75 mg PO BID 06/10/25 06/10/25 06/10/25 History ropinirole 1 mg tablet 1 mg PO BEDTIME PRN restless leg 06/10/25 06/10/25 Unknown History syndrome rosuvastatin 10 mg tablet 10 mg PO QPM 06/10/25 06/10/25 06/09/25 History sertraline 100 mg tablet 200 mg PO QAM 06/10/25 06/10/25 06/10/25 History Allergies Allergy/AdvReac Type Severity Reaction Status Date / Time No Known Allergies Allergy Verified 05/24/20 22:14 Current Medications Generic Name Dose Route Start Last Admin Trade Name Freq PRN Reason Stop Dose Admin Norepinephrine Bitartrate 4 mg in 250 mls @ 0 mls/hr 06/10/25 18:00 06/10/25 18:23 Levophed IV 8 mcg/min .Q0M KATHLEEN 30 mls/hr Protocol Administration Per Protocol Sodium Bicarbonate 150 meq/ 1,150 mls @ 100 mls/hr 06/10/25 19:00 06/10/25 20:10 Dextrose IV 100 mls/hr .[id number] KATHLEEN Administration PFSH Acute PFSH: Medical History No pertinent past medical history Surgical History (Updated 05/24/20 @ 22:05 by Yeny Bejarano) History of lung surgery Vitals/I&O/Wt Last Vital Signs Temp 97.6 F 06/10/25 14:21 Pulse 90 06/10/25 20:14 Resp 16 06/10/25 20:14 BP 124/59 06/10/25 20:14 Pulse Ox 98 06/10/25 20:14 O2 Del Method Room Air 06/10/25 15:02 O2 Flow Rate 3 06/10/25 14:50 06/10/25 06/10/25 06/10/25 06:59 14:59 22:59 Intake Total 3422.8 / 3422.8 Balance 3422.8 / 3422.8 Weight last 48 hrs Weight 70.76 kg Physical Exam Narrative: Patient is awake alert, no distress, on room air PEERLA, dry mucous membranes S1-S2 regular rate and rhythm per report Lungs with decreased breath sounds bilaterally Abdomen soft nontender per report Extremities no pedal edema. Urinary Catheter Management: Ontiveros: Cath Placed During This Visit: yes Reason for Continuing Indwelling Catheter: Acute Urinary Retention or Obstruction Urinary Catheter Date of Insertion: 06/10/25 Urinary Catheter Time of Insertion: 15:33 Data 06/10/25 15:29 06/10/25 17:23 Micro: Microbiology 06/10/25 14:57 Blood Culture - Preliminary Blood SPECIMEN COLLECTED 06/10/25 15:07 Blood Culture - Preliminary Blood SPECIMEN COLLECTED A&P Assessment and plan 1. AXEL (acute kidney injury): 1. Acute kidney injury: Baseline creatinine not available, unclear if patient has underlying CKD. Will obtain records from PCP office. Patient now has hyperkalemia and metabolic acidosis. Etiology likely chronic NSAID use and recently worsened due to severe nausea and poor p.o. intake. -No obstruction on CT scan, urine analysis with 3+ protein and 3+ blood, has microscopic hematuria - Started on bicarbonate drip, Ontiveros catheter placed, has urine output about 350 mL since presentation - Will repeat BMP in the next few hours, if no improvement will require dialysis - Also ordered serologies: C3-C4, PRITI, ANCA, anti-GBM, urine protein creatinine ratio, SPEP and hepatitis panel - If no improvement in renal function and etiology unclear, will recommend renal biopsy 2. Hyperkalemia: Low K diet and bicarb drip 3. Metabolic acidosis: On bicarbonate drip and monitor 4. History of diabetes, metformin on hold 5. Shock, hypotensive on Levophed, 6. History of hypertension, on lisinopril which is on hold Patient evaluated using audiovisual cart. Time spent 40 minutes. PDMP PDMP Reviewed: Not Reviewed Consult Attestations Medical Necessity Statement: Per medicine team Coding Level of Care Code Acute Code for [facility] Diagnoses AXEL (acute kidney injury) N17.9
--- NOTE | 2025-06-10 22:05 | ECG_ITS ---
[employer] Test Date: 2025-06-10 Pat Name: Rajan Isaac Department: Room: Gender: Male [employer]: : 1970 Requested By: Monique Ivan Order Number: [id number] Reading MD: Measurements Intervals [place] Rate: 87 P: 45 IN: 132 QRS: 4 QRSD: 118 T: 46 QT: 388 QTc: 467 Interpretive Statements SINUS RHYTHM MODERATE INTRAVENTRICULAR CONDUCTION DELAY [110+ ms QRS DURATION] [email or web address]
[2025-06-10] MEDS: albumin 25 G/100 ML BAG 60 G IV (23:00)
[2025-06-10 23:04] LABS: Creatinine Urine, Random 65 mg/dL (39-259)
[2025-06-10 23:27] LABS: Troponin 5 6HR Delta -16.4 ng/L (0-12)
[2025-06-10 23:28] LABS: Troponin 5 6HR 116.6 ng/L (0-15)
[2025-06-10 23:38] LABS: Chloride 100 mmol/L (98-107)
[2025-06-11] VITALS (85 sets, daily range): BP systolic 71–166; BP diastolic 42–110; PULSE 63–98; RESP 0–35; TEMP 36.4–36.7; O2SAT 89–100
[2025-06-11 00:37] LABS: Anion Gap 28.4 (5-19); Calcium 7.8 mg/dL (8.5-10.5); Carbon Dioxide 12 mmol/L (22-29); Glucose 171 mg/dL (65-115); Osmolality Calculated 309 mOsm/kg (285-295); Potassium 5.4 mmol/L (3.5-5.1); Sodium 135 mmol/L (136-145)
[2025-06-11 00:42] LABS: Blood Urea Nitrogen 82 mg/dL (6-20); Creatinine Clr Calc Pharmacy 8.1842
--- NOTE | 2025-06-11 00:56 | USCV_ITS ---
Olivier Isaac Age: 54 Gender: M : 1970 Exam Date: 06/11/2025 02:20 Ordering Phys: Estefany Gan MD Technologist: SUSAN Exam Location: [facility] [place] Indication: elevated troponin, DM2 HTN DL substance abuse BP: 101 / 60 HR: 77 Rhythm: Sinus Technical Quality: Adequate MEASUREMENTS (Male / Female) Normal Values 2D ECHO LV Diastolic Diameter PLAX 4.2 cm 4.2 - 5.9 / 3.9 - 5.3 cm IVS Diastolic Thickness 1.4 cm 0.6 - 1.0 / 0.6 - 0.9 cm IVS Systolic Thickness 2.0 cm LVPW Diastolic Thickness 1.1 cm 0.6 - 1.0 / 0.6 - 0.9 cm LVPW Systolic Thickness 1.7 cm LVOT Diameter 2.3 cm LV Ejection Fraction 2D Teich 65.0 % LV Ejection Fraction MOD 4C 53.5 % LV Ejection Fraction MOD 2C 77.2 % LV Ejection Fraction 2C AL 78.0 % LA Diameter 3.1 cm Aorta at Sinotubular Diameter 2.8 cm IVC Diameter 1.5 cm M-MODE LA Ao Ratio MM 1.0 AV Cusp Separation MM 2.1 cm DOPPLER AV Peak Velocity 123.0 cm/s LVOT Peak Velocity 129.0 cm/s AV Area Cont Eq vti 4.6 cm squared AV Area Cont Eq pk 4.2 cm squared MV Peak Velocity 115.0 cm/s MV Area PHT 3.9 cm squared Mitral E to A Ratio 1.0 PV Peak Velocity 106.0 cm/s FINDINGS Left Ventricle Left ventricular is normal in size. LV systolic function is normal with EF of 60-65%. No regional wall motion abnormalities are seen. Right Ventricle Normal in size and function Right Atrium Normal in size Left Atrium Normal in size Mitral Valve Structurally normal mitral valve. Mild mitral regurgitation. Aortic Valve Structurally normal aortic valve. No significant stenosis or regurgitation. Tricuspid Valve Insufficient TR jet to calculate RVSP Pulmonic Valve Not well-visualized Pericardium Normal Aorta Normal in size IVC Appears to be normal CONCLUSIONS LV systolic function is normal with EF of 60-65% Mild mitral regurgitation Yousif Wheat MD (Electronically Signed) Final Date: 11 June 2025 09:48 S
[2025-06-11] MEDS: cefTRIAXone 1,000 mg SDV 1000 MG IVP (01:31)
[2025-06-11 01:53] LABS: Calcium 7.7 mg/dL (8.5-10.5)
[2025-06-11 02:39] LABS: Hepatitis B Surface Antigen Non-Reactive (Nonreactive)
[2025-06-11 06:15] LABS: Hematocrit 32.8 % (37-53); Hemoglobin 10.90 g/dL (11.27-16.99); Mean Corpuscular HGB Conc 33.2 g/dL (30-55); Mean Corpuscular Hemoglobin 28.1 pg (27-33); Mean Corpuscular Volume 84.5 fl (82-101); Nucleated Red Blood Cells % 0 %; Platelet Count 191 10^3/cmm (157-399); Red Blood Count 3.88 10^6/uL (3.85-5.65); White Blood Count 5.23 10^3/uL (3.29-11.43)
[2025-06-11 06:31] LABS: Prothrombin Time 57.30 SECONDS (12.1-14.9)
[2025-06-11 06:37] LABS: Alanine Aminotransferase 12 U/L (0-41); Albumin Level 3.5 g/dL (3.5-5.2); Alkaline Phosphatase 95 U/L (40-130); Anion Gap 25.0 (5-19); Aspartate Amino Transferase 11 U/L (0-40); Blood Urea Nitrogen 69 mg/dL (6-20); Calcium 7.4 mg/dL (8.5-10.5); Carbon Dioxide 19 mmol/L (22-29); Chloride 103 mmol/L (98-107); Creatinine Clr Calc Pharmacy 9.3532; Globulin 2.3 g/dL (1.3-4.6); Glucose 178 mg/dL (65-115); Osmolality Calculated 321 mOsm/kg (285-295); Potassium 4.0 mmol/L (3.5-5.1); Sodium 143 mmol/L (136-145); Total Protein 5.8 g/dL (6.6-8.7)
[2025-06-11 06:44] LABS: INR 6.13 (0.8-1.2)
[2025-06-11 07:02] LABS: Estmated Average Glucose 183; Hemoglobin A1C 8.0 % (4.0-6.0)
[2025-06-11 09:20] LABS: Procalcitonin 0.26 ng/mL (0-0.5)
[2025-06-11 09:33] LABS: Lipase 9 U/L (13-60)
--- NOTE | 2025-06-11 10:16 | P.PN_ITS ---
Subjective 2 Subjective: remains on room air UOP 1600 ml Medications: Reviewed: Yes Vitals/I&O/Wt Last Vital Signs Temp 97.6 F 06/11/25 08:00 Pulse 81 06/11/25 09:00 Resp 15 06/11/25 09:00 BP 95/52 06/11/25 09:00 Pulse Ox 100 06/11/25 09:00 O2 Del Method Room Air 06/11/25 04:00 O2 Flow Rate 3 06/10/25 14:50 06/10/25 06/11/25 06/11/25 22:59 06:59 14:59 Intake Total 3636.3 / 3636.3 128.25 / 3764.55 Output Total 350 / 350 1300 / 1650 Balance 3286.3 / 3286.3 -1171.75 / 2114.55 Weight last 48 hrs Weight 71.497 kg Weight 71.5 kg Weight 70.76 kg Physical Exam 2 Narrative: Patient is awake alert, no distress, on room air PEERLA, dry mucous membranes S1-S2 regular rate and rhythm per report Lungs with decreased breath sounds bilaterally Abdomen soft nontender per report Extremities no pedal edema. Urinary Catheter Management: Ontiveros: Cath Placed During This Visit: yes Reason for Continuing Indwelling Catheter: Acute Urinary Retention or Obstruction Urinary Catheter Date of Insertion: 06/10/25 Urinary Catheter Time of Insertion: 15:33 Data 06/11/25 06:02 06/11/25 06:02 Micro: Microbiology 06/10/25 14:57 Blood Culture - Preliminary Blood SPECIMEN COLLECTED 06/10/25 15:07 Blood Culture - Preliminary Blood SPECIMEN COLLECTED A&P Assessment and plan 1. AXEL (acute kidney injury): 1. Acute kidney injury: Baseline creatinine not available, unclear if patient has underlying CKD. Will obtain records from PCP office. Patient now has hyperkalemia and metabolic acidosis. Etiology likely chronic NSAID use and recently worsened due to severe nausea and poor p.o. intake. -No obstruction on CT scan, urine analysis with 3+ protein and 3+ blood, has microscopic hematuria - Started on bicarbonate drip, Ontiveros catheter placed, - Cr slightly better , UOP picked up - Will repeat BMP in the next few hours, if no improvement will require dialysis - Also ordered serologies: C3-C4, PRITI, ANCA, anti-GBM, urine protein creatinine ratio, SPEP and hepatitis panel - If no improvement in renal function and etiology unclear, will recommend renal biopsy 2. Hyperkalemia: Low K diet and bicarb drip 3. Metabolic acidosis: On bicarbonate drip and monitor 4. History of diabetes, metformin on hold 5. Shock, hypotensive on Levophed, 6. History of hypertension, on lisinopril which is on hold Patient evaluated using audiovisual cart. Time spent 40 minutes. PDMP PDMP Reviewed: Not Reviewed Attestations 2 Medical Necessity Statement*: per [facility] Coding Level of Care Code Acute Code for [facility] Diagnoses AXEL (acute kidney injury) N17.9
--- NOTE | 2025-06-11 17:28 | PM.PN ---
Subjective Subjective: Patient was seen this morning, currently alert oriented x 3, following all commands, patient mom is at bedside, he does report using IV drugs a few years ago, nothing currently reports smoking methamphetamine, denies any falls, injuries, no family history of kidney disease does have diabetes, does have hypertension, does report chronic back pain, no flank pain, no dysuria, no cough, no shortness of breath, no abdominal pain, no nausea, vomiting, he is on 1 of Levophed Vitals/I&O/Wt Last Vital Signs Temp 98.1 F 06/11/25 12:00 Pulse 76 06/11/25 16:45 Resp 14 06/11/25 16:45 BP 97/59 06/11/25 16:45 Pulse Ox 98 06/11/25 16:45 O2 Del Method Room Air 06/11/25 04:00 O2 Flow Rate 3 06/10/25 14:50 06/11/25 06/11/25 06/11/25 06:59 14:59 22:59 Intake Total 128.25 / 3764.55 1150 / 1150 99.875 / 1249.875 Output Total 1300 / 1650 Balance -1171.75 / 2114.55 1150 / 1150 99.875 / 1249.875 Weight last 48 hrs Weight 71.497 kg Weight 71.5 kg Weight 70.76 kg Physical Exam Const: COMMON NORMALS: no acute distress and patient oriented x3 Eye: COMMON NORMALS: Equal, round and reactive pupils present and EOMs intact bilaterally PUPIL: Yes Equal, round and reactive pupils present Resp: COMMON NORMALS: normal respiratory effort, No retractions, No use of accessory muscles and clear to auscultation bilaterally AUSCULTATION: clear to auscultation bilaterally Cardio: COMMON NORMALS: regular rate, regular rhythm, S1 normal heart sound present and S2 normal heart sound present RATE: regular rate RHYTHM: regular rhythm HEART SOUNDS: S1 normal heart sound present and S2 normal heart sound present GI: COMMON NORMALS: Normal to inspection, nondistended, normoactive bowel sounds present and non-tender Extremity: COMMON NORMALS: no pedal edema Neuro: COMMON NORMALS: patient oriented x3, CN's II-XII intact bilaterally and moves all extremities Psych: COMMON NORMALS: mental status grossly normal Skin: COMMON NORMALS: turgor normal GENERAL SKIN EXAM: turgor normal Urinary Catheter Management: Ontiveros: Cath Placed During This Visit: yes Reason for Continuing Indwelling Catheter: Acute Urinary Retention or Obstruction Urinary Catheter Date of Insertion: 06/10/25 Urinary Catheter Time of Insertion: 15:33 Quick SOFA Score: Respiratory Rate: 14 Blood Pressure: 97/59 Ernest Coma Scale: 15 qSOFA Score: 1 If qSOFA score 2 or greater, continue: PaO2/FiO2 Ratio (mmHg): 571 Blood Pressure Mean: 71 Bilirubin (mg/dl): 0.2 Platelets (x10?/ml): 191 Creatinine (mg/dl): 9.1 SOFA Score: 4 Evaluation: Current stage of sepsis: sepsis Sepsis stage criteria used: [facility] Sep-1 and Sepsis-3 Crystalloid fluids: 30 mL/kg crystalloid fluids ordered and initiated within 3 hours Blood cultures ordered: Yes Possible source: genitourinary Focused Exam: Vital signs: Temp Pulse Resp BP Pulse Ox 06/11/25 16:45 76 14 97/59 98 06/11/25 16:30 77 14 85/57 98 06/11/25 16:15 77 14 91/57 98 06/11/25 16:00 87 15 115/80 95 06/11/25 15:45 77 13 85/57 97 06/11/25 15:30 84 14 129/87 94 06/11/25 15:15 79 17 83/57 97 06/11/25 15:00 80 15 107/63 97 06/11/25 14:45 78 19 H 104/65 98 06/11/25 14:30 77 15 102/76 98 06/11/25 14:15 84 16 102/66 99 06/11/25 14:00 81 16 112/67 99 06/11/25 14:00 78 06/11/25 13:45 87 14 98 06/11/25 13:30 150/107 06/11/25 13:15 101/59 06/11/25 13:00 88 15 71/52 97 06/11/25 12:45 81 18 153/101 98 06/11/25 12:30 91 13 96/60 98 06/11/25 12:15 96 35 H 98 06/11/25 12:00 98.1 F 98 22 H 97 06/11/25 11:45 77 10 L 104/64 99 06/11/25 11:30 96 06/11/25 11:15 79 12 101/63 99 06/11/25 11:00 80 4 L 102/67 100 06/11/25 10:45 82 15 100/63 99 06/11/25 10:30 81 0 L 97 06/11/25 10:15 85 15 87/57 06/11/25 10:00 82 14 83/55 92 06/11/25 09:45 80 17 87/53 98 06/11/25 09:30 131/60 06/11/25 09:15 131/60 06/11/25 09:00 81 15 95/52 100 06/11/25 08:45 130/53 06/11/25 08:30 81 14 100/53 99 06/11/25 08:15 79 16 98/49 99 06/11/25 08:00 97.6 F 81 0 L 100/49 98 06/11/25 07:45 78 15 96/48 98 06/11/25 07:30 76 15 91/48 98 06/11/25 07:15 79 15 92/51 98 06/11/25 07:00 81 15 93/50 99 06/11/25 06:45 81 15 97/50 99 06/11/25 06:30 84 16 94/51 100 06/11/25 06:15 72 28 H 123/90 95 06/11/25 06:00 68 29 H 137/79 91 06/11/25 05:45 67 26 H 137/79 92 Respiratory exam: CTA bilaterally Cardiovascular exam: regular rate, regular rhythm, S1 normal heart sound and S2 normal heart sound Capillary refill: > 3 Seconds Peripheral pulse strength: 3+ Normal Peripheral pulse location: Radial and Pedal Skin exam: turgor normal Date exam was performed: 06/11/25 Time exam was performed: 09:30 Sepsis Screen No Definite Risk 06/10/25, 20:14 Respiratory Rate, (12 - 18) 14 breaths/min Today, 16:45 Blood Pressure 97/59 mmHg Today, 16:45 Ernest Coma Scale Score 15 Today, 08:00 Quick SOFA Score 0 06/10/25, 20:14 SOFA Score: ABG PO2/FiO2 Ratio 571 06/10/25, 14:55 Shahid Coma Scale Score 15 Today, 08:00 Blood Pressure Mean 71 mmHg Today, 16:45 Total Bilirubin, (0.15-1.2) 0.2 mg/dL Today, 06:02 Platelet Count, (157-399) 191 10^3/cmm Today, 06:02 Creatinine, (0.7-1.2) 9.1 mg/dL H* Today, 06:02 Data 06/11/25 06:02 06/11/25 06:02 Micro: Microbiology 06/10/25 14:57 Blood Culture - Preliminary Blood NEGATIVE TO DATE 06/10/25 15:07 Blood Culture - Preliminary Blood NEGATIVE TO DATE A&P Assessment and plan 1. Acute renal failure: - History of type 2 diabetes mellitus - History of hypertension - CT scan abdomen pelvis no evidence of obstruction, has history of nephrolithiasis - Does report weakness, altered mental status, lethargy - Urine toxicology screen positive for methamphetamines Plan -Hold nephrotoxic agents - C3-C4, PRITI, ANCA, anti-GBM, urine protein creatinine ratio, SPEP - Nephrology consulted - IV bicarb drip - IV albumin - Monitor urine output, monitor creatinine 2. Metabolic acidosis: Likely secondary to renal failure 3. Altered mental status: Potentially related to uremia, renal failure - Monitor mentation - Currently alert oriented x 3 4. Hyperkalemia: Resolved 5. Diabetes mellitus: Low-dose sliding scale 6. Elevated troponin: Baseline troponin at 126, 6-hour at 116, downtrending at 0216 hrs. EKG without any acute ST-T wave changes Patient denies any chest pain Type I versus type II NSTEMI Does report methamphetamine use Cardiac echo 7. Elevated INR: Elevated INR Etiology unclear No radiographic evidence of liver cirrhosis Monitor 8. Hypotension: - Currently on Levophed at 1 - Lactic acid within normal limits - Does complain of dysuria, possible sepsis? CRP within normal limits, Pro-Albert within normal limits, sed rate within normal limits, lactic acid within normal limits, continue IV Rocephin - CT scan abdomen pelvis no acute findings - Continue IV fluids - Continue IV albumin - Maintain MAP greater than 65 9. NSTEMI (non-ST elevated myocardial infarction): 10. AXEL (acute kidney injury): Plan: DVT prophylaxis: SCDs only, no anticoagulation due to deranged INR Full code PDMP PDMP Reviewed: Not Reviewed Attestations Medical Necessity Statement*: Patient requires hospitalization, inpatient, greater than 2 midnights, for acute renal failure, methamphetamine use, NSTEMI Diagnoses Acute renal failure N17.9 Metabolic acidosis E87.20 Altered mental status R41.82 Hyperkalemia E87.5 Diabetes mellitus E11.9 Elevated troponin R79.89 Elevated INR R79.1 Hypotension I95.9 NSTEMI (non-ST elevated myocardial infarction) I21.4 AXEL (acute kidney injury) N17.9
[2025-06-11] MEDS: albumin 25 G/100 ML BAG 60 G IV (17:57)
[2025-06-11 18:36] LABS: Prothrombin Time 62.30 SECONDS (12.1-14.9)
[2025-06-11 18:44] LABS: Partial Thromboplastin Time 69.2 SECONDS (23.9-36.7)
[2025-06-11 18:56] LABS: HIV 1 & 2 Antigen Non-Reactive (Non-Reactiv)
[2025-06-11 19:04] LABS: Alanine Aminotransferase 14 U/L (0-41); Albumin Level 3.4 g/dL (3.5-5.2); Alkaline Phosphatase 97 U/L (40-130); Blood Urea Nitrogen 61 mg/dL (6-20); Calcium 7.4 mg/dL (8.5-10.5); Carbon Dioxide 18 mmol/L (22-29); Chloride 99 mmol/L (98-107); Creatinine Clr Calc Pharmacy 15.7619; Globulin 2.6 g/dL (1.3-4.6); Glucose 345 mg/dL (65-115); Osmolality Calculated 313 mOsm/kg (285-295); Sodium 136 mmol/L (136-145); Total Protein 6.0 g/dL (6.6-8.7)
[2025-06-11 19:06] LABS: Lactate (Lactic Acid level) 1.4 mmol/L (0.5-2.2)
[2025-06-11 19:10] LABS: Anion Gap 23.2 (5-19); Aspartate Amino Transferase 17 U/L (0-40); Potassium 4.2 mmol/L (3.5-5.1)
[2025-06-11 19:34] LABS: INR 6.82 (0.8-1.2)
[2025-06-11] MEDS: norepinephrine 4 MG/250 ML BAG 15 MG IV (21:35)
[2025-06-12] VITALS (69 sets, daily range): BP systolic 92–128; BP diastolic 51–87; PULSE 60–87; RESP 1–20; TEMP 36.5–36.8; O2SAT 91–100
[2025-06-12] MEDS: cefTRIAXone 1,000 mg SDV 1000 MG IVP (01:19)
[2025-06-12] MEDS: albumin 25 G/100 ML BAG 60 G IV ×2 (01:24→08:50)
[2025-06-12 04:53] LABS: Hematocrit 32.7 % (37-53); Hemoglobin 11.20 g/dL (11.27-16.99); Mean Corpuscular HGB Conc 34.3 g/dL (30-55); Mean Corpuscular Hemoglobin 28.7 pg (27-33); Mean Corpuscular Volume 83.8 fl (82-101); Nucleated Red Blood Cells % 0 %; Platelet Count 177 10^3/cmm (157-399); Red Blood Count 3.90 10^6/uL (3.85-5.65); White Blood Count 5.13 10^3/uL (3.29-11.43)
[2025-06-12 05:14] LABS: Prothrombin Time 50.40 SECONDS (12.1-14.9)
[2025-06-12 05:21] LABS: INR 5.20 (0.8-1.2)
[2025-06-12 05:23] LABS: Alanine Aminotransferase 13 U/L (0-41); Albumin Level 4.2 g/dL (3.5-5.2); Alkaline Phosphatase 92 U/L (40-130); Anion Gap 18.9 (5-19); Aspartate Amino Transferase 13 U/L (0-40); Blood Urea Nitrogen 50 mg/dL (6-20); Calcium 8.1 mg/dL (8.5-10.5); Carbon Dioxide 25 mmol/L (22-29); Chloride 104 mmol/L (98-107); Creatinine Clr Calc Pharmacy 21.2785; Globulin 2.4 g/dL (1.3-4.6); Glucose 101 mg/dL (65-115); Magnesium 1.6 mg/dL (1.7-2.3); Osmolality Calculated 311 mOsm/kg (285-295); Potassium 3.9 mmol/L (3.5-5.1); Sodium 144 mmol/L (136-145); Total Protein 6.6 g/dL (6.6-8.7)
[2025-06-12 07:00] LABS: PROTEIN, TOTAL 5.4 g/dL (6.1-8.1)
[2025-06-12 09:24] LABS: CENTROMERE B ANTIBODY <1.0 NEG AI (<1.0 NEG); JO-1 ANTIBODY <1.0 NEG AI (<1.0 NEG); RNP ANTIBODY <1.0 NEG AI (<1.0 NEG); SCL-70 ANTIBODY <1.0 NEG AI (<1.0 NEG); SS-B <1.0 NEG AI (<1.0 NEG)
[2025-06-12 12:32] LABS: Glucose Urine UA 2+ (Normal); Nitrate Urine Negative (Negative); Specific Gravity, Urine 1.013 (1.005-1.030)
[2025-06-12 12:35] LABS: Add Urine Microscopic? YES
--- NOTE | 2025-06-12 13:07 | P.PN_ITS ---
Subjective 2 Subjective: Patient was seen this morning, currently alert oriented x 3, following commands, no fevers, chills, cough, neurologic no vomiting, no chest pain, no palpitations, no lightheadedness, no dizziness Vitals/I&O/Wt Last Vital Signs Temp 97.7 F 06/12/25 08:00 Pulse 79 06/12/25 12:00 Resp 13 06/12/25 12:00 BP 113/72 06/12/25 12:00 Pulse Ox 100 06/12/25 12:00 O2 Del Method Room Air 06/11/25 04:00 O2 Flow Rate 3 06/10/25 14:50 06/11/25 06/12/25 06/12/25 22:59 06:59 14:59 Intake Total 221.000 / 1576.146 4465.75 / 2503.750 100 / 100 Output Total 1500 / 1500 Balance 221.000 / 1371.000 -367.25 / 1003.750 100 / 100 Weight last 48 hrs Weight 75 kg Weight 71.497 kg Weight 71.5 kg Weight 70.76 kg Physical Exam 2 Const: COMMON NORMALS: no acute distress and patient oriented x3 Resp: COMMON NORMALS: normal respiratory effort, No retractions, No use of accessory muscles and clear to auscultation bilaterally AUSCULTATION: clear to auscultation bilaterally Cardio: COMMON NORMALS: regular rate, regular rhythm, S1 normal heart sound present and S2 normal heart sound present RATE: regular rate RHYTHM: r egular rhythm HEART SOUNDS: S1 normal heart sound present and S2 normal heart sound present GI: COMMON NORMALS: Normal to inspection, nondistended, normoactive bowel sounds present and non-tender Extremity: COMMON NORMALS: no pedal edema Neuro: COMMON NORMALS: patient oriented x3 Psych: COMMON NORMALS: mental status grossly normal Urinary Catheter Management: Ontiveros: Cath Placed During This Visit: yes Reason for Continuing Indwelling Catheter: Accurate Measurement of Urinary Output in Critically Ill Patients Urinary Catheter Date of Insertion: 06/10/25 Urinary Catheter Time of Insertion: 15:33 Data 06/12/25 04:39 06/12/25 04:39 Micro: Microbiology 06/10/25 15:29 Urine Culture - Preliminary Urine,Clean Catch 06/10/25 14:57 Blood Culture - Preliminary Blood NEGATIVE TO DATE 06/10/25 15:07 Blood Culture - Preliminary Blood NEGATIVE TO DATE A&P Assessment and plan 1. Acute renal failure: - History of type 2 diabetes mellitus - History of hypertension - CT scan abdomen pelvis no evidence of obstruction, has history of nephrolithiasis - Does report weakness, altered mental status, lethargy - Urine toxicology screen positive for methamphetamines Plan -Hold nephrotoxic agents - C3-C4, PRITI, ANCA, anti-GBM, urine protein creatinine ratio, SPEP - Nephrology consulted - IV bicarb drip, transition to normal saline - IV albumin - Monitor urine output, monitor creatinine 2. Metabolic acidosis: Likely secondary to renal failure 3. Altered mental status: Potentially related to uremia, renal failure - Monitor mentation - Currently alert oriented x 3 4. Hyperkalemia: Resolved 5. Diabetes mellitus: Low-dose sliding scale 6. Elevated troponin: Baseline troponin at 126, 6-hour at 116, downtrending at 0216 hrs. EKG without any acute ST-T wave changes Patient denies any chest pain Type I versus type II NSTEMI Does report methamphetamine use Cardiac echo CONCLUSIONS LV systolic function is normal with EF of 60-65% Mild mitral regurgitation 7. Elevated INR: Elevated INR Etiology unclear No radiographic evidence of liver cirrhosis Monitor 8. Hypotension: - Currently off Levophed - Lactic acid within normal limits - Does complain of dysuria, possible sepsis? CRP within normal limits, Pro-Albert within normal limits, sed rate within normal limits, lactic acid within normal limits, continue IV Rocephin - CT scan abdomen pelvis no acute findings - Continue IV fluids - Continue IV albumin - Maintain MAP greater than 65 9. NSTEMI (non-ST elevated myocardial infarction): 10. AXEL (acute kidney injury): Plan: DVT prophylaxis: SCDs only, no anticoagulation due to deranged INR Full code Given elevated INR, ordered DIC, vitamin K PDMP PDMP Reviewed: Not Reviewed Attestations 2 Medical Necessity Statement*: Patient requires hospitalization acute renal failure, NSTEMI, elevated INR Diagnoses Acute renal failure N17.9 Metabolic acidosis E87.20 Altered mental status R41.82 Hyperkalemia E87.5 Diabetes mellitus E11.9 Elevated troponin R79.89 Elevated INR R79.1 Hypotension I95.9 NSTEMI (non-ST elevated myocardial infarction) I21.4 AXEL (acute kidney injury) N17.9
[2025-06-12] MEDS: phytonadione (ADULT) 5 MG in sodium chloride 0.9% 50 ML 151.5 MG IV (13:37)
[2025-06-12 14:40] LABS: COMPLEMENT COMPONENT C3C 103 mg/dL (82-185); COMPLEMENT COMPONENT C4C 24 mg/dL (15-53)
[2025-06-12 15:40] LABS: COMPLEMENT, TOTAL (CH50) >60 U/mL (31-60)
--- NOTE | 2025-06-12 16:33 | PM.PN ---
Subjective Subjective: no new c/o Medications: Reviewed: Yes Vitals/I&O/Wt Last Vital Signs Temp 97.7 F 06/12/25 08:00 Pulse 63 06/12/25 14:00 Resp 13 06/12/25 12:00 BP 113/72 06/12/25 12:00 Pulse Ox 100 06/12/25 12:00 O2 Del Method Room Air 06/11/25 04:00 O2 Flow Rate 3 06/10/25 14:50 06/12/25 06/12/25 06/12/25 06:59 14:59 22:59 Intake Total 1132.75 / 2503.750 1300.5 / 1300.5 Output Total 1500 / 1500 Balance -367.25 / 8988.282 3538.5 / 1300.5 Weight last 48 hrs Weight 75 kg Weight 71.497 kg Weight 71.5 kg Physical Exam Narrative: Patient is awake alert, no distress, on room air PEERLA, dry mucous membranes S1-S2 regular rate and rhythm per report Lungs with decreased breath sounds bilaterally Abdomen soft nontender per report Extremities no pedal edema. Urinary Catheter Management: Ontiveros: Cath Placed During This Visit: yes Reason for Continuing Indwelling Catheter: Accurate Measurement of Urinary Output in Critically Ill Patients Urinary Catheter Date of Insertion: 06/10/25 Urinary Catheter Time of Insertion: 15:33 Data 06/12/25 04:39 06/12/25 04:39 Micro: Microbiology 06/10/25 15:29 Urine Culture - Preliminary Urine,Clean Catch 06/10/25 14:57 Blood Culture - Preliminary Blood NEGATIVE TO DATE 06/10/25 15:07 Blood Culture - Preliminary Blood NEGATIVE TO DATE A&P Assessment and plan 1. AXEL (acute kidney injury): 1. Acute kidney injury: Baseline creatinine not available, unclear if patient has underlying CKD. Will obtain records from PCP office. Patient now has hyperkalemia and metabolic acidosis. Etiology likely chronic NSAID use and recently worsened due to severe nausea and poor p.o. intake. -No obstruction on CT scan, urine analysis with 3+ protein and 3+ blood, has microscopic hematuria - s/p bicarbonate drip- switched to NS - Cr better , UOP picked up - Will repeat BMP in the next few hours, if no improvement will require dialysis - Also ordered serologies: C3-C4, PRITI, ANCA, anti-GBM, urine protein creatinine ratio, SPEP and hepatitis panel 2. Hyperkalemia: Low K diet 3. Metabolic acidosis: s/p bicarbonate drip and monitor 4. History of diabetes, metformin on hold 5. Shock, hypotensive on Levophed, 6. History of hypertension, on lisinopril which is on hold Patient evaluated using audiovisual cart. Time spent 40 minutes. PDMP PDMP Reviewed: Not Reviewed Attestations Medical Necessity Statement*: PER [facility] Coding Level of Care Code Acute Code for [facility] Diagnoses AXEL (acute kidney injury) N17.9
[2025-06-12 16:54] LABS: Reflex FDPQ test REFLEX FDP QUEST TES
[2025-06-12 18:07] LABS: INR 1.94 (0.8-1.2); Prothrombin Time 23.40 SECONDS (12.1-14.9)
[2025-06-12 18:08] LABS: Fibrinogen 408 mg/dL (174-498); Partial Thromboplastin Time 45.8 SECONDS (23.9-36.7)
[2025-06-13] VITALS: BP 120/64; PULSE 78; RESP 16; TEMP 36.8; O2SAT 95
[2025-06-13] MEDS: cefTRIAXone 1,000 mg SDV 1000 MG IVP (00:21)
[2025-06-13 04:00] VITALS: BP 120/69; PULSE 56; RESP 16; TEMP 36.7; O2SAT 98
[2025-06-13 05:35] LABS: Hematocrit 27.7 % (37-53); Hemoglobin 9.30 g/dL (11.27-16.99); Mean Corpuscular HGB Conc 33.6 g/dL (30-55); Mean Corpuscular Hemoglobin 28.5 pg (27-33); Mean Corpuscular Volume 85.0 fl (82-101); Nucleated Red Blood Cells % 0 %; Platelet Count 158 10^3/cmm (157-399); Red Blood Count 3.26 10^6/uL (3.85-5.65); White Blood Count 3.60 10^3/uL (3.29-11.43)
[2025-06-13 05:46] LABS: INR 1.30 (0.8-1.2); Prothrombin Time 17.10 SECONDS (12.1-14.9)
[2025-06-13 05:50] LABS: Alanine Aminotransferase 10 U/L (0-41); Albumin Level 3.7 g/dL (3.5-5.2); Alkaline Phosphatase 67 U/L (40-130); Anion Gap 16.8 (5-19); Aspartate Amino Transferase 11 U/L (0-40); Blood Urea Nitrogen 25 mg/dL (6-20); Calcium 8.1 mg/dL (8.5-10.5); Carbon Dioxide 22 mmol/L (22-29); Chloride 105 mmol/L (98-107); Creatinine Clr Calc Pharmacy 41.3460; Globulin 2.0 g/dL (1.3-4.6); Glucose 151 mg/dL (65-115); Magnesium 1.5 mg/dL (1.7-2.3); Osmolality Calculated 297 mOsm/kg (285-295); Potassium 3.8 mmol/L (3.5-5.1); Sodium 140 mmol/L (136-145); Total Protein 5.7 g/dL (6.6-8.7)
[2025-06-13 07:55] VITALS: BP 119/72; PULSE 56; RESP 16; TEMP 36.6; O2SAT 97
[2025-06-13 10:34] LABS: THYROID PEROXIDASE ANTIBODIES <1 IU/mL (<9)
[2025-06-13 11:26] VITALS: BP 129/74; PULSE 56; RESP 16; TEMP 36.5; O2SAT 98
[2025-06-13 12:51] LABS: Anion Gap 15.9 (5-19); Blood Urea Nitrogen 22 mg/dL (6-20); Calcium 8.3 mg/dL (8.5-10.5); Carbon Dioxide 23 mmol/L (22-29); Chloride 104 mmol/L (98-107); Creatinine Clr Calc Pharmacy 49.0567; Glucose 190 mg/dL (65-115); Osmolality Calculated 296 mOsm/kg (285-295); Potassium 3.9 mmol/L (3.5-5.1); Sodium 139 mmol/L (136-145)
[2025-06-13 13:17] VITALS: BP 129/74; PULSE 56; RESP 16; TEMP 36.5; O2SAT 98
[2025-06-13 13:20] LABS: Glomerular Bsmt Membrane IGG <1.0 AI
--- NOTE | 2025-06-13 13:32 | P.DS_ITS ---
Discharge Providers Date of Admission: 06/10/25 19:18 Date of Discharge: June 13, 2025 Attending Provider at Admission: Estefany Gan MD Attending Provider at Discharge: Nick Ashraf MD Primary Care Provider: KYLIE Duncan Diagnoses at Discharge Discharge Diagnosis 1. AXEL (acute kidney injury): Reason for Visit Reason for Visit: AMS Hospital Course Hospital Course This is a 54-year-old male with a past medical history of hypertension, diabetes, diabetic neuropathy, dyslipidemia history of substance abuse, who presents [facility] due to generalized weakness, altered mental status Patient was admitted to [facility] for acute renal failure, metabolic acidosis, hyperkalemia, likely combination of dehydration, methamphetamine use, Celebrex, with underlying CKD, CT scan abdomen pelvis did not show any obstructive uropathy, but did have nephrolithiasis, nephrotoxic medications were held, started on IV fluids, nephrology consulted. Overall creatinine improved to 1.8, patient clinically improved, discharged home with instructions to drink plenty electrolyte balance fluids, follow creatinine through primary care provider Patient had hematuria during his hospitalization, serologies have been ordered -C3-C4, PRITI, ANCA, anti-GBM, SPEP, pending on discharge, follow-up with outpatient primary care - Has elevated urine protein, follow-up with nephrology - Patient presents for hematuria during hospitalization, could be from her nephrolithiasis - Advised to drink plenty of electrolyte balance fluids - Repeat UA through primary care provider - Will have him follow-up with nephrology in [place] if patient continues to have hematuria, AXEL will likely need a kidney biopsy Patient with hypotension during hospitalization, sepsis due to UTI, resolved with IV antibiotics, blood cultures so far no growth, remains afebrile at discha e on cefdinir UTI, discharged on cefdinir During hospitalization patient had NSTEMI, no chest pain complaints, cardiac echo showed EF of 60 to 65%, type I versus type II NSTEMI, likely secondary to methamphetamine use. Patient will be discharged with close follow-up with primary care and cardiology as outpatient, patient was advised if any chest pain go to the emergency room. Discharged on aspirin, continue home Crestor Elevated INR during hospitalization, resolved on discharge, potentially associated with sepsis, vitamin K deficiency? Altered mental status, resolved on discharge Type 2 diabetes mellitus, discharged home on a low-dose sliding scale Celebrex stopped on discharge Metformin will be stopped on discharge, but can be resumed as his creatinine improves Patient was strongly advised to abstain from all drug use, discussed morbidity and mortality, he voiced understanding, all questions answered Physical Exam Const: COMMON NORMALS: no acute distress and patient oriented x3 Resp: COMMON NORMALS: normal respiratory effort, No retractions, No use of accessory muscles and clear to auscultation bilaterally AUSCULTATION: clear to auscultation bilaterally Cardio: COMMON NORMALS: regular rate, regular rhythm, S1 normal heart sound present and S2 normal heart sound present RATE: regular rate RHYTHM: regular rhythm HEART SOUNDS: S1 normal heart sound present and S2 normal heart sound present GI: COMMON NORMALS: Normal to inspection, nondistended, normoactive bowel sounds present and non-tender Extremity: COMMON NORMALS: no pedal edema Neuro: COMMON NORMALS: patient oriented x3 Psych: COMMON NORMALS: mental status grossly normal Urinary Catheter Management: Ontiveros: Cath Placed During This Visit: yes, but has since been removed by the nurse Reason for Continuing Indwelling Catheter: Decision to DC Catheter Urinary Catheter Date of Insertion: 06/10/25 Urinary Catheter Time of Insertion: 15:33 Date Urinary Catheter Removed: 06/13/25 Time Urinary Catheter Discontinued: 10:45 Discharge Data Studies Completed and Pending Completed Studies During Hospitalization Category Date Time Status CT abdomen renal stone [CT kidney stone 08157] Stat Cat Scan 06/10/25 16:[address] head wo con* [id number] Stat Cat Scan 06/10/25 14:28 Completed XR chest 1V portable [id number] Stat Exams 06/10/25 14:28 Completed CV. echo complete* [id number] Routine Ultrasound 06/11/25 00:56 Completed US renal BI* [id number] Routine Ultrasound 06/10/25 20:28 Completed Pending at discharge Category Date Time Status PRITI SCREEN [PRITI Profile Rheumatology] Routine Lab 06/10/25 20:28 Results ANCA [Anti-Neutrophil Cytoplasmic AB] Routine Lab 06/10/25 20:28 Received Blood Culture Stat Lab 06/10/25 14:57 Results Complete Blood Count w/Auto AM LABS Lab 06/14/25 04:00 Ordered Comprehensive Metabolic Panel AM LABS Lab 06/14/25 04:00 Ordered Fibrinogen Degradation Product Routine Lab 06/12/25 04:47 Received Magnesium AM LABS Lab 06/14/25 04:00 Ordered Phosphorus AM LABS Lab 06/14/25 04:00 Ordered Prothrombin Time INR AM LABS Lab 06/14/25 04:00 Ordered SPEP [Total Protein Electrophoresis] Routine Lab 06/10/25 20:28 Results Urine Culture Routine Lab 06/12/25 10:57 Received Urine Culture Stat Lab 06/10/25 15:29 Results Urine Protein Electrop Random Routine Lab 06/10/25 05:50 Received Vitamin B1(Thiamin) Plas/Ser Stat Lab 06/12/25 15:02 Received Vitamin K Routine Lab 06/12/25 15:02 Received Radiology Impressions Chest X-Ray 06/10/25 14:28 IMPRESSION: No acute findings. Head CT 06/10/25 14:28 IMPRESSION: Unremarkable CT head. No acute intracranial edema or hemorrhage. Abdomen/Pelvis CT 06/10/25 16:15 IMPRESSION: 1. No obstructive uropathy. 2. Nonobstructive bilateral nephrolithiasis. 3. Ontiveros catheter is appropriately positioned. Bladder is decompressed, limiting assessment of the wall. 4. Marked pancreatic atrophy and calcification consistent with chronic pancreatitis. Renal Ultrasound 06/10/25 20:28 IMPRESSION: No pathologic findings. Known bilateral renal stones are not visible on this exam. Laboratory Results WBC 3.60 10^3/uL (3.29-11.43) 06/13/25 04:47 Corrected WBC Cancelled 06/10/25 15:07 RBC 3.26 10^6/uL (3.85-5.65) L 06/13/25 04:47 Hgb 9.30 g/dL (11.27-16.99) L 06/13/25 04:47 Hct 27.7 % (37-53) L 06/13/25 04:47 MCV 85.0 fl (82-101) 06/13/25 04:47 MCH 28.5 pg (27-33) 06/13/25 04:47 MCHC 33.6 g/dL (30-55) 06/13/25 04:47 RDW 13.5 % (12.1-15.1) 06/13/25 04:47 Plt Count 158 10^3/cmm (157-399) 06/13/25 04:47 MPV 10.8 fL (7.4-10.4) H 06/13/25 04:47 Gran % Cancelled 06/10/25 15:07 Neut % (Auto) 54.7 % 06/13/25 04:47 Lymph % (Auto) 31.9 % 06/13/25 04:47 [place] % (Auto) 8.9 % 06/13/25 04:47 Eos % (Auto) 2.5 % 06/13/25 04:47 Baso % (Auto) 1.7 % 06/13/25 04:47 Neut # (Auto) 1.97 10^3/uL (1.8-7.7) 06/13/25 04:47 Lymph # (Auto) 1.2 10^3/uL (0.8-4.8) 06/13/25 04:47 [place] # (Auto) 0.3 10^3/uL (0.2-0.9) 06/13/25 04:47 Eos # (Auto) 0.1 10^3/uL (0.0-0.8) 06/13/25 04:47 Baso # (Auto) 0.1 10^3/uL (0.0-0.1) 06/13/25 04:47 Absolute Gran (auto) Cancelled 06/10/25 15:07 Nucleated RBC % (auto) 0 % 06/13/25 04:47 Nucleated RBCs # 0.0 /100WBC 06/13/25 04:47 ESR 7 mm/hr (0-10) 06/11/25 06:02 PT 17.10 SECONDS (12.1-14.9) H 06/13/25 04:47 INR 1.30 (0.8-1.2) H 06/13/25 04:47 APTT 45.8 SECONDS (23.9-36.7) H 06/12/25 16:50 Fibrinogen 408 mg/dL (174-498) 06/12/25 16:50 D-Dimer <= 0.27 ug/mLFEU (0-0.59) 06/12/25 16:50 Specimen Type Arterial 06/10/25 14:55 Sample Site Brachial, right 06/10/25 14:55 ABG pH 7.12 (7.35-7.45) L* 06/10/25 14:55 ABG pCO2 34.0 mmHg (35-45) L 06/10/25 14:55 ABG pO2 120.0 mmHg (80.0-100.0) H 06/10/25 14:55 ABG PO2/FiO2 Ratio 571 06/10/25 14:55 ABG HCO3 11.1 mmol/L (22-26) L 06/10/25 14:55 ABG Base Excess -17.0 mmol/L (-2.0-2.0) L 06/10/25 14:55 Jimmy Test N/a 06/10/25 14:55 Hematocrit 34.1 % (42-52) L 06/10/25 14:55 Hgb O2 Saturation 96.8 % (95-100) 06/10/25 14:55 Carboxyhemoglobin 0.4 %THgb (0.4-20.1) 06/10/25 14:55 Methemoglobin 0.8 % (0.4-1.5) 06/10/25 14:55 Total Hemoglobin 11.1 g/dL (14-18) L 06/10/25 14:55 O2 Delivery Device Room air 06/10/25 14:55 FiO2 21.0 % 06/10/25 14:55 Fire Protection Inspector ID glc 06/10/25 14:55 Sodium 139 mmol/L (136-145) 06/13/25 12:27 Potassium 3.9 mmol/L (3.5-5.1) 06/13/25 12:27 Chloride 104 mmol/L (98-107) 06/13/25 12:27 Carbon Dioxide 23 mmol/L (22-29) 06/13/25 12:27 Anion Gap 15.9 (5-19) 06/13/25 12:27 BUN 22 mg/dL (6-20) H 06/13/25 12:27 Creatinine 1.8 mg/dL (0.7-1.2) H 06/13/25 12:27 GFR Calculation 39.8 mL/min (90-130) L 06/13/25 12:27 Glucose 190 mg/dL (65-115) H 06/13/25 12:27 POC Glucose 164 mg/dL (70-110) H 06/13/25 10:48 Estimat Average Glucose 183 06/11/25 06:02 Hemoglobin A1c 8.0 % (4.0-6.0) H 06/11/25 06:02 Calculated Osmolality 296 mOsm/kg (285-295) H 06/13/25 12:27 Lactic Acid Cancelled 06/10/25 15:07 Lactate 1.4 mmol/L (0.5-2.2) 06/11/25 18:08 Calcium 8.3 mg/dL (8.5-10.5) L 06/13/25 12:27 Phosphorus 3.0 mg/dL (2.5-4.5) 06/13/25 04:47 Magnesium 1.5 mg/dL (1.7-2.3) L 06/13/25 04:47 Total Bilirubin 0.3 mg/dL (0.15-1.2) 06/13/25 04:47 AST 11 U/L (0-40) 06/13/25 04:47 ALT 10 U/L (0-41) 06/13/25 04:47 Alkaline Phosphatase 67 U/L (40-130) 06/13/25 04:47 Ammonia 40 umol/L (16-60) 06/10/25 17:23 Creatine Kinase 199 U/L (39-308) 06/10/25 22:57 Troponin T Baseline 133 ng/L (0-15) H* 06/10/25 15:29 Troponin T 120 Minute 126.3 ng/L (0-15) H 06/10/25 17:23 Delta Troponin T -6.7 ABS# (0-10) L 06/10/25 17:23 Troponin T Hi Sens 6Hr 116.6 ng/L (0-15) H 06/10/25 22:57 Troponin T Hi Sens 6Hr Delta -16.4 ng/L (0-12) L 06/10/25 22:57 C-Reactive Protein 3.0 mg/L (0.0-4.9) 06/11/25 06:02 Total Protein 5.7 g/dL (6.6-8.7) L 06/13/25 04:47 Albumin 3.7 g/dL (3.5-5.2) 06/13/25 04:47 Globulin 2.0 g/dL (1.3-4.6) 06/13/25 04:47 Lipase 9 U/L (13-60) L 06/11/25 06:02 25-OH Vitamin D Total 24 ng/mL (30-100) L 06/10/25 22:57 Procalcitonin 0.26 ng/mL (0-0.5) 06/11/25 06:02 TSH 0.96 uIU/mL (0.27-4.20) 06/10/25 17:23 PTH Intact 133.4 pg/mL (15-65) H 06/10/25 22:57 Calcium (PTH Intact) 7.7 mg/dL (8.5-10.5) L 06/10/25 22:57 Urine Color Yellow (Yellow) 06/12/25 10:57 Urine Appearance Clear (CLEAR) 06/12/25 10:57 Urine pH 5.5 (5-7) 06/12/25 10:57 Ur Specific [place] 1.013 (1.005-1.030) 06/12/25 10:57 Urine Protein 1+ (Negative) A 06/12/25 10:57 Urine Glucose (UA) 2+ (Normal) H 06/12/25 10:57 Urine Ketones 1+ (Negative) H 06/12/25 10:57 Urine Blood 3+ (Negative) A 06/12/25 10:57 Urine Nitrate Negative (Negative) 06/12/25 10:57 Urine Bilirubin Negative (Negative) 06/12/25 10:57 Urine Urobilinogen 0.2 mg/dL (Negative) 06/12/25 10:57 Ur Leukocyte Esterase Negative (Negative) 06/12/25 10:57 Urine RBC 51-100 /hpf (0-2) H 06/12/25 10:57 Urine WBC 0-5 /hpf (0-5) 06/12/25 10:57 Ur Squamous Epith Cells 0-5 /hpf (0-5) 06/12/25 10:57 Amorphous Sediment Not Reportable 06/12/25 10:57 Urine Bacteria None seen /hpf (NONE) 06/12/25 10:57 Hyaline Casts 4.52 /lpf 06/12/25 10:57 U Random Total Protein 24 mg/dL 06/10/25 21:53 Urine Creatinine 65 mg/dL (39-259) 06/10/25 21:53 Urine Opiates Screen Negative ng/mL (Negative) 06/10/25 15:29 Ur Barbiturates Screen Negative ng/mL (Negative) 06/10/25 15:29 Ur Phencyclidine Scrn Negative ng/mL (Negative) 06/10/25 15:29 Ur Amphetamines Screen Positive ng/mL (Negative) H 06/10/25 15:29 U Benzodiazepines Scrn Negative ng/mL (Negative) 06/10/25 15:29 Urine Cocaine Screen Negative ng/mL (Negative) 06/10/25 15:29 U Marijuana (THC) Screen Negative ng/mL (Negative) 06/10/25 15:29 Ethyl Alcohol < 10 mg/dL (0-10) 06/10/25 17:23 ESTELA-1 Antibody <1.0 neg AI (<1.0 NEG) 06/11/25 06:02 SS-A Antibody <1.0 neg AI (<1.0 NEG) 06/11/25 06:02 SS-B Antibody <1.0 neg AI (<1.0 NEG) 06/11/25 06:02 Sm (Schultz) Antibody <1.0 neg AI (<1.0 NEG) 06/11/25 06:02 LABOR MEDIATOR Antibody <1.0 neg AI (<1.0 NEG) 06/11/25 06:02 Scl-70 Antibody <1.0 neg AI (<1.0 NEG) 06/11/25 06:02 Centromere B Antibody <1.0 neg AI (<1.0 NEG) 06/11/25 06:02 Thyroid Peroxidase Ab <1 IU/mL (<9) 06/11/25 06:02 Glomerular Base Mem IgG <1.0 AI 06/11/25 06:02 Complement C3 133 mg/dL (90-180) 06/10/25 22:57 Complement C3c 103 mg/dL (82-185) 06/11/25 06:02 Complement C4 31 mg/dL (10-40) 06/10/25 22:57 Complement C4c 24 mg/dL (15-53) 06/11/25 06:02 CH50 Classical Pathway >60 U/mL (31-60) H 06/11/25 06:02 Hep Bs Antigen Non-reactive (Nonreactive) 06/10/25 22:57 Hep Bs Antibody < 3.5 (11.5-1000) L 06/10/25 22:57 Hepatitis C Antibody Non-reactive (Nonreactive) 06/10/25 22:57 HIV 1&2 Ab & HIV 1 Ag Non-reactive (Non-Reactiv) 06/11/25 18:08 HIV 1&2 Antibody Non-reactive (Non-Reactiv) 06/11/25 18:08 Vitals Last Vital Signs Temp 97.7 F 06/13/25 13:17 Pulse 56 L 06/13/25 13:17 Resp 16 06/13/25 13:17 BP 129/74 06/13/25 13:17 Pulse Ox 98 06/13/25 13:17 O2 Del Method Room Air 06/13/25 11:26 O2 Flow Rate 3 06/10/25 14:50 Discharge Plan Discharge Patient Disposition: Home Condition: Stable Prescriptions: New insulin aspart U-100 [Novolog FlexPen U-100 Insulin] 100 unit/mL (3 mL) insulin pen See Rx Instructions .ROUTE .COMPLEX Qty: 15 0RF Rx Instructions: Inject, subcut, 3 times daily, after meals, based on low-dose sliding scale Multiple Vitamin-Minerals Tablet 1 tab PO DAILY 30 Days Qty: 30 0RF (DME) glucometer testing kit See Rx Instructions .Route .MEDSUPPLY Qty: 1 0RF Rx Instructions: Check blood sugar, 3 times daily, Lancets 100 100 cefdinir 300 mg capsule 300 mg PO BID 5 Days Qty: 10 0RF aspirin 81 mg tablet 81 mg PO DAILY 30 Days Qty: 30 0RF Continued multivitamin Tablet 1 tab PO QAM ropinirole 1 mg Tablet 1 mg PO BEDTIME PRN (Reason: restless leg syndrome) cetirizine 10 mg Tablet 10 mg PO DAILY sertraline 100 mg Tablet 200 mg PO QAM omeprazole 40 mg Capsule,Delayed Release(Dr/Ec) 40 mg PO QAM fluticasone propionate 50 mcg/actuation [place],Suspension 1 spray INTRANASAL DAILY Rx Instructions: administer into each nostril rosuvastatin 10 mg Tablet 10 mg PO QPM pregabalin [Lyrica] 75 mg Capsule 75 mg PO BID ferrous gluconate 324 mg (38 mg iron) Tablet 324 mg PO DAILY Discontinued lisinopril 10 mg Tablet 10 mg PO DAILY celecoxib [Celebrex] 100 mg Capsule 100 mg PO DAILY metformin 500 mg Tablet Extended Release 24 Hr 1,000 mg PO DAILY potassium chloride 20 mEq Tablet Extended Release 10 meq PO DAILY Discharge Order = DC NOW: Discharge Order (Routine); Ordered 06/13/25 Ordered By: Nick Ashraf Referrals: [facility] [Outside, Nephrology] Referral Note: We have faxed your information to [facility] of the need for a follow-up appointment to be scheduled. If you have not heard from them within the next 2 business days, please call them directly. Safia Abarca MD [Physician, Cardiology] - 7-10 days Referral Note: We have notified your physician's clinic of the need for a follow-up appointment to be scheduled. If you have not heard from them within the next 2 business days, please call them directly. Angelique White FNP [Primary Care Provider, Nurse Practitioner] - 06/26/25 3:00 pm Discharge Diet: Cardiac Discharge Activity: Resume usual activity Patient Instructions: Multivitamins, Adult Formula (By mouth), Insulin Aspart, Recombinant (By injection) (Novolog, Novolog..., Hypotension (DC), Altered Mental Status (ED), Opioid Safety, Patient Portal & Susy Instructions Activity Restrictions/Additional Instructions: - Please hydrate well and drink at least 2 L of fluid a day - Please stop methamphetamine use - For now continue to hold metformin - Once your kidney function improves we might resume it in the near future - Please follow-up with [facility], - Your creatinine on discharge is 2.1 - Our worry is is that you had hematuria, you might need a kidney biopsy, please follow-up with nephrology - See your primary care provider next week for recheck kidney function -Please monitor your blood sugars closely -Monitor your blood sugars 3 times daily as after meals -Please record your blood sugars, and a blood sugar log -For your NovoLog -Please inject blood sugar after meals based on sliding scale provided -Do not inject insulin if you do not eat as hypoglycemia kills -This is a NovoLog sliding scale -Insulin sliding ?fingerstick? Insulin ?141-180?0 units/sq 181-220?2 units/sq ?221-260?4 units/sq ?261-300 6 units/sq ?301-350?8 units/sq ?351-400 10 units/sq ?401-450?12 units/sq >450? 14units/sq -If your blood sugar is greater than 500 go to the emergency room -If your blood sugar is less than 60 or at anytime you feel lightheaded or dizzy or diaphoretic or have chest palpitations check your blood sugar, and eat a hard candy or drink orange juice and go immediately to the emergency room -Remember hypoglycemia kills, so if his blood sugar is less than 60 we have to increase it by taking in a sugary meal such as a hard candy or orange juice and go to the emergency room -If you have any questions please call us where here to help Discharge Attestations Time Spent in Discharge Care*: greater than 30 min Quality Metrics Clinical Quality Measures [ No reported AMI, CVA or VTE this stay] Coding Level of Care Code 76010 Total time (in minutes) for Discharge: 45 Diagnoses AXEL (acute kidney injury) N17.9
--- NOTE | 2025-06-13 13:37 | PC.NURSE ---
All IVs removed prior to discharge. Pt was given verbal and written education with mother present at bedside. All questions answered and prescriptions to be picked up at pharmacy.
--- NOTE | 2025-06-13 15:33 | P.PN_ITS ---
Subjective 2 Subjective: no new c/o Medications: Reviewed: Yes Vitals/I&O/Wt Last Vital Signs Temp 97.7 F 06/13/25 13:17 Pulse 56 L 06/13/25 13:17 Resp 16 06/13/25 13:17 BP 129/74 06/13/25 13:17 Pulse Ox 98 06/13/25 13:17 O2 Del Method Room Air 06/13/25 11:26 O2 Flow Rate 3 06/10/25 14:50 06/13/25 06/13/25 06/13/25 06:59 14:59 22:59 Intake Total 1100 / 4065.0 1225 / 1225 Balance 1100 / 3165.0 1225 / 1225 Weight last 48 hrs Weight 78.018 kg Weight 75 kg Physical Exam 2 Narrative: Patient is awake alert, no distress, on room air PEERLA, dry mucous membranes S1-S2 regular rate and rhythm per report Lungs with decreased breath sounds bilaterally Abdomen soft nontender per report Extremities no pedal edema. Urinary Catheter Management: Ontiveros: Cath Placed During This Visit: yes, but has since been removed by the nurse Reason for Continuing Indwelling Catheter: Decision to DC Catheter Urinary Catheter Date of Insertion: 06/10/25 Urinary Catheter Time of Insertion: 15:33 Date Urinary Catheter Removed: 06/13/25 Time Urinary Catheter Discontinued: 10:45 Data 06/13/25 04:47 06/13/25 12:27 Micro: Microbiology 06/10/25 15:29 Urine Culture - Final Urine,Clean Catch 06/12/25 10:57 Urine Culture - Preliminary Urine,Clean Catch A&P Assessment and plan 1. AXEL (acute kidney injury): 1. Acute kidney injury: Baseline creatinine not available, unclear if patient has underlying CKD. Will obtain records from PCP office. Patient now has hyperkalemia and metabolic acidosis. Etiology likely chronic NSAID use and recently worsened due to severe nausea and poor p.o. intake. -No obstruction on CT scan, urine analysis with 3+ protein and 3+ blood, has microscopic hematuria - s/p bicarbonate drip- switched to NS - Cr better , UOP picked up - Will repeat BMP in the next few hours, if no improvement will require dialysis - Also ordered serologies: C3-C4, PRITI, ANCA, anti-GBM, urine protein creatinine ratio, SPEP and hepatitis panel--> serologies are currently pending but creatinine has improved down to 2. Needs outpatient nephrology follow-up to follow-up on repeat labs as well as follow-up on serologies and consider biopsy if required. 2. Hyperkalemia: Low K diet 3. Metabolic acidosis: s/p bicarbonate drip and monitor 4. History of diabetes, metformin on hold 5. Shock, hypotensive on Levophed, 6. History of hypertension, on lisinopril which is on hold Patient evaluated using audiovisual cart. Time spent 40 minutes. PDMP PDMP Reviewed: Not Reviewed Attestations 2 Medical Necessity Statement*: Per medicine team Coding Level of Care Code Acute Code for [facility] Fwd Diagnoses AXEL (acute kidney injury) N17.9
[2025-06-13 16:39] LABS: Creatinine, Random Urine 100 mg/dL (20-320); Protein, Total, Random 60 mg/dL (5-25); Protein/Creatinine Ratio 0.600 (0.025-0.148); Protein/Creatinine Ratio 600 mg/g creat (25-148)
[2025-06-13 20:11] LABS: ALPHA 1 GLOBULIN 0.2 g/dL (0.2-0.3); ALPHA 2 GLOBULIN 0.5 g/dL (0.5-0.9); BETA 1 GLOBULIN 0.3 g/dL (0.4-0.6); BETA 2 GLOBULIN 0.3 g/dL (0.2-0.5)
[2025-06-14 05:54] LABS: ANCA Screen NEGATIVE (NEGATIVE)
[2025-06-15 19:04] LABS: DNA AB (DS) CRITHIDIA,IFA NEGATIVE (NEGATIVE)
[2025-06-17 10:09] LABS: Albumin,Urine Random 19 %; Alpha-1-Globulins Urine Random 21 %; Alpha-2-Globulins Urine Random 23 %; Beta-Globulin,Urine Random 28 %; Gamma Globulin,Urine Random 10 %
[2025-06-17 13:20] LABS: Vitamin B1(Thiamin) Plas/Ser 14 nmol/L (8-30)
== END 2025-06-13 13:39 | disposition home or self-care (01) | DRG 682 ==
LOC: ER 15:36 → ICU 19:57 → MEDSURG 06-12 17:10
PROVIDERS: Hospitalist; Admitting Provider Student in an Organized Health Care Education/Training Program; Emergency Provider Emergency Medicine; PCP Nurse Practitioner; Visit Provider Family Medicine
DX: N17.9 Acute kidney failure, unspecified (principal); I21.4 Non-ST elevation (NSTEMI) myocardial infarction; R57.8 Other shock; E87.20 Acidosis, unspecified; N39.0 Urinary tract infection, site not specified; G93.49 Other encephalopathy; E87.5 Hyperkalemia; E86.0 Dehydration; F15.188 Other stimulant abuse with other stimulant-induced disorder; N14.19 Nephropathy induced by other drugs, medicaments and biological substances; T43.655A Adverse effect of methamphetamines, initial encounter; E11.22 Type 2 diabetes mellitus with diabetic chronic kidney disease; I12.9 Hypertensive chronic kidney disease with stage 1 through stage 4 chronic kidney disease, or unspecified chronic kidney disease; E11.40 Type 2 diabetes mellitus with diabetic neuropathy, unspecified; N18.9 Chronic kidney disease, unspecified; Z79.84 Long term (current) use of oral hypoglycemic drugs; N20.0 Calculus of kidney; Z87.442 Personal history of urinary calculi; E78.5 Hyperlipidemia, unspecified
CPT/HCPCS: 36415; 36416; 36600; 51702; 70450; 71045; 74176; 76770; 80048; 80053; 80306; 80307; 81001; 82140; 82306; 82310; 82550; 82570; 82575; 82805; 82962; 83036; 83520; 83605; 83690; 83735; 83970; 84100; 84145; 84155; 84156; 84165; 84166; 84425; 84443; 84484; 84597; 85025; 85362; 85378; 85384; 85610; 85651; 85730; 86036; 86140; 86160; 86162; 86235; 86255; 86376; 86706; 86803; 87040; 87086; 87340; 87806; 93005; 93306; 96365; 96366; 96367; 96372; 96374; 96375; 96376; 99291; J0696; J1815; J2310; J2543; J3373; J3430; J7030; J7050; J7070; J9999; P9046; P9047

== ENCOUNTER 2025-09-10 14:26 | Observation (INO) | payer OTHER, SELFPAY ==
[2025-09-10] VITALS (10 sets, daily range): BP systolic 144–176; BP diastolic 88–111; PULSE 69–90; RESP 16–21; TEMP 36.6–37.2; O2SAT 90–96; BMI 25.2
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
--- NOTE | 2025-09-10 14:28 | ECG_ITS ---
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 Measurements Intervals [place] Rate: 67 P: 63 OR: 164 QRS: -4 QRSD: 112 T: 24 QT: 420 QTc: 446 Interpretive Statements SINUS RHYTHM MODERATE INTRAVENTRICULAR CONDUCTION DELAY [110+ ms QRS DURATION] Compared to ECG 06/10/2025 22:05:53 No significant changes Electronically Signed On 09-10-2025 15:31:59 CDT by Karen Jaramillo M.D. [email or web address]
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
[2025-09-10 14:54] LABS: Hematocrit 38.6 % (37-53); Hemoglobin 13.40 g/dL (11.27-16.99); Mean Corpuscular HGB Conc 34.7 g/dL (30-55); Mean Corpuscular Hemoglobin 27.5 pg (27-33); Mean Corpuscular Volume 79.3 fl (82-101); Nucleated Red Blood Cells % 0 %; Platelet Count 302 10^3/cmm (157-399); Red Blood Count 4.87 10^6/uL (3.85-5.65); White Blood Count 5.76 10^3/uL (3.29-11.43)
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
[2025-09-10 15:07] LABS: Ketone (Acetest) Serum Negative (Negative)
[2025-09-10 15:11] LABS: ABG PCO2 50.3 mmHg (35-45); ABG PH Result 7.39 (7.35-7.45); Arterial Blood Gas Hematocrit 43.8 % (42-52); Blood Gas Operator Identificat AMH; Blood Gas Sample Site Brachial, right; Carboxyhemoglobin 0.9 %THgb (0.4-20.1); Glucose Level-ABG 798.0 mg/dL (70-115); HCO3 ABG 30.7 mmol/L (22-26); Ionized Calcium Level - ABG 1.2 mmol/L (1.1-1.4); Methemoglobin 0.8 % (0.4-1.5); Oxygen Saturation ABG 59.1; PO2 ABG 30.5 mmHg (80.0-100.0); PO2 FiO2 Ratio Arterial Blood 145; Potassium Level - ABG 4.2 mmol/L (3.5-5.0); Sodium Level - ABG 127.0 mmol/L (131-143)
[2025-09-10 15:13] LABS: Blood Gas Sample Type Venous
[2025-09-10 15:18] LABS: Lactic Sepsis W/Reflex 0.9 mmol/L (0.5-2.2)
[2025-09-10 15:28] LABS: Troponin(5th) Baseline 36 ng/L (0-15)
[2025-09-10 15:29] LABS: Alanine Aminotransferase 24 U/L (0-41); Albumin Level 4.5 g/dL (3.5-5.2); Alkaline Phosphatase 172 U/L (40-130); Anion Gap 21.4 (5-19); Aspartate Amino Transferase 27 U/L (0-40); Blood Urea Nitrogen 10 mg/dL (6-20); Calcium 9.4 mg/dL (8.5-10.5); Carbon Dioxide 23 mmol/L (22-29); Chloride 85 mmol/L (98-107); Creatinine Clr Calc Pharmacy 66.9011; Globulin 2.5 g/dL (1.3-4.6); Magnesium 2.0 mg/dL (1.7-2.3); Potassium 4.4 mmol/L (3.5-5.1); Sodium 125 mmol/L (136-145); Total Protein 7.0 g/dL (6.6-8.7)
[2025-09-10 15:37] LABS: Osmolality Calculated 300 mOsm/kg (285-295)
[2025-09-10 15:40] LABS: Glucose 841 mg/dL (65-115)
[2025-09-10 15:59] LABS: Glucose Urine UA Trace (Normal); Nitrate Urine Negative (Negative)
[2025-09-10] MEDS: insulin regular-human 100 units/1 mL 11 UNIT IVP (16:09)
[2025-09-10 16:25] LABS: Specific Gravity, Urine 1.037 (1.005-1.030)
--- NOTE | 2025-09-10 16:29 | ECG_ITS ---
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 Measurements Intervals [place] Rate: 79 P: 76 HI: 155 QRS: -17 QRSD: 96 T: 33 QT: 376 QTc: 432 Interpretive Statements SINUS RHYTHM WITH SINUS ARRHYTHMIA Compared to ECG 09/10/2025 14:28:00 Intraventricular conduction delay no longer present Electronically Signed On 09-10-2025 19:33:41 CDT by Karen Jaramillo M.D. [email or web address]
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
--- OUTSIDE RECORDS SUMMARY | 2025-09-10 17:04 | XMS_ITS | Encounter Summary ---
Author Organization [facility] [place] [facility], [facility] Address [address] [place] [address] Phone Care Team Providers Care Mail Handler Name Role Phone Angelique White RESEARCH SPECIALIST Primary Care Provider [phone] Encounter Details Date Type Department Care Team (Late st Contact Info) Description 06/15/2025 Orders Only [facility] [employer], [facility] [address] [place] [address] Acute nontraumatic kidney injury, not otherwise specified (HCC); Hematuria, not otherwise specified Social History Tobacco Use Types Packs/Day Years Used Date Smoking Tobacco: Never Assessed Sex and Gender Information Value Date Recorded Sex Assigned at Not on file Legal Sex Male 1:11 PM EDT Gender Identity Not on file Sexual Orientation Not on file documented as of this encounter Plan of Treatment Not on file documented as of this encounter Visit Diagnoses Diagnosis Acute nontraumatic kidney injury, not otherwise specified (HCC) Hematuria, not otherwise specified documented in this encounter Care Teams Mail Handler Relationship Specialty Start Date End Date Angelique White NP [address] [place] [address] PCP - General Nurse Practitioner 06/14/25 documented as of this encounter
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
--- OUTSIDE RECORDS SUMMARY | 2025-09-10 17:04 | XMS_ITS | Encounter Summary ---
Author Organization [facility] Address [address] [address] Phone Care Team Providers Care Centrifugal Casting Machine Tender Name Role Phone Angelique White FRONT DESK ATTENDANT Primary Care Provider [phone] [phone] Reason for Referral * Consultation (Routine) - Closed Specialty Diagnoses / Procedures Referred By Contanatoly t Referred To Contact Nephrology Diagnoses Acute nontraumatic kidney injury, not otherwise specified (HCC) Hematuria, not otherwise specified Estefany Gan MD [address] [place] [address] Phone: tel: fax: Ariana Betts MD [address] [address] Phone: tel: fax: Referral ID Status Reason Start Date Expiration Date V isits Requested Visits Authorized [id number] Closed Consult and Treat 12/15/2025 06/14/2026 1 1 Encounter Details Date Type Department Care Team (Late st Contact Info) Description 06/14/2025 Transcribe Orders [place], [facility] [address] [address] Estefany Gan MD [address] [place] [address] Acute nontraumatic kidney injury, not otherwise specified (HCC) (Primary Dx); Hematuria, not otherwise specified Social History Tobacco Use Types Packs/Day Years Used Date Smoking Tobacco: Never Assessed Sex and Gender Information Value Date Recorded Sex Assigned at Not on file Legal Sex Male 1:11 PM EDT Gender Identity Not on file Sexual Orientation Not on file documented as of this encounter Plan of Treatment Scheduled Referrals Name Type Priority Associated Diagnoses Orde r Schedule Ambulatory referral to Nephrology Outpatient Referral Routine Acute nontraumatic kidney injury, not otherwise specified (HCC) Hematuria, not otherwise specified Expected: 06/15/2025, Expires: 06/14/2026 documented as of this encounter Visit Diagnoses Diagnosis Acute nontraumatic kidney injury, not otherwise specified (HCC)- Primary Hematuria, not otherwise specified documented in this encounter Care Teams Centrifugal Casting Machine Tender Relationship Specialty Start Date End Date Angelique White NP [address] [place] [address] PCP - General Nurse Practitioner 06/14/25 documented as of this encounter
[2025-09-10 17:18] LABS: Troponin 5 2HR 31.63 ng/L (0-15)
[2025-09-10 17:19] LABS: Troponin 5 2HR Delta -4.37 ABS# (0-10)
[2025-09-10 17:46] LABS: Thyroid Stimulating Hormone 1.29 uIU/mL (0.27-4.20)
[2025-09-10 17:53] LABS: Acetaminophen < 5.0 ug/mL (10-30); Alcohol Level < 10 mg/dL (0-10); Salicylate < 0.3 mg/dL (3-10)
[2025-09-10 18:16] LABS: PCP Screen Urine Negative (Negative)
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
[2025-09-10] MEDS: insulin glargine 100 units/1 mL 20 UNIT SUBCUT (20:01)
[2025-09-10] MEDS: sodium chlor 0.9% + KCl 20 mEq 20 MEQ/1,000 ML BAG 125 MEQ IV (20:01)
--- NOTE | 2025-09-10 20:29 | ECG_ITS ---
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 Measurements Intervals [place] Rate: 101 P: 64 [place]: 137 QRS: -41 QRSD: 111 T: 39 QT: 356 QTc: 462 Interpretive Statements SINUS TACHYCARDIA WITH VENTRICULAR PREMATURE COMPLEXES LEFT AXIS DEVIATION [QRS AXIS < -30] MODERATE INTRAVENTRICULAR CONDUCTION DELAY [110+ ms QRS DURATION] Compared to ECG 09/10/2025 16:32:12 Ventricular premature complex(es) now present Left-axis deviation now present Intraventricular conduction delay now present Sinus rhythm no longer present Sinus arrhythmia no longer present Electronically Signed On 09-11-2025 23:01:32 CDT by Karen Jaramillo M.D. [email or web address]
[2025-09-10 21:11] LABS: Troponin 5 6HR 37.46 ng/L (0-15); Troponin 5 6HR Delta 1.46 ng/L (0-12)
[2025-09-11 04:00] VITALS: BP 167/89; PULSE 84; RESP 16; TEMP 36.6; O2SAT 90
[2025-09-11] MEDS: sodium chlor 0.9% + KCl 20 mEq 20 MEQ/1,000 ML BAG 125 MEQ IV ×2 (04:15→11:34)
[2025-09-11 06:16] LABS: Anion Gap 17.6 (5-19); Blood Urea Nitrogen 10 mg/dL (6-20); Calcium 8.5 mg/dL (8.5-10.5); Carbon Dioxide 23 mmol/L (22-29); Chloride 101 mmol/L (98-107); Creatinine Clr Calc Pharmacy 86.5280; Glucose 196 mg/dL (65-115); Osmolality Calculated 290 mOsm/kg (285-295); Potassium 3.6 mmol/L (3.5-5.1); Sodium 138 mmol/L (136-145)
[2025-09-11 07:21] VITALS: BP 119/73; PULSE 71; RESP 20; TEMP 37.3; O2SAT 95
--- NOTE | 2025-09-11 08:52 | PC.PHAR ---
[facility]. [facility] was faxed 09/11/25. Ropinirole 1mg qhs prn new rx 06/10/25 30ds- is not on the current list.
--- NOTE | 2025-09-11 09:22 | PC.CHAP ---
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 visit [] Patient/Family/Request visit [] Outpatient visit [] Follow-up visit [] Physician referral [] Code/Alert [x] Routine visit [] Staff referral [] Actively dying [] Patient sleeping [x] Family support [] [] Out of room [] Palliative care [] [] Receiving care in room [] Pre-surgical visit [] Trauma [] Long length of stay [] ICU visit [] Other: Relational/Emotional Strength [x] Patient feels connected with others/family/visitors/staff [] Distress [] Loneliness/isolation [] Abandonment Spirituality of Patient [x] Person of Lilia [] Attends Church of their Lilia [x] Believes in Prayer [] Reads Bible or Sikh materials [] There are Spiritual issues to be addressed Principal Secretary Interventions [x] Prayer [x] Active listening [] Non-anxious presence [x] Spiritual/emotional support [] Crisis/trauma care [] Spiritual counseling [] Bereavement support [] Provided bereavement packet [] Provided Bible/devotional materials [] Provided toy/stuffed animal, coloring book to patient or family member [] Provided Communion [] Anointing/[place] [] Salvation [x] Completed spiritual assessment [] Other: Impact on Illness or Injury [] Angry [] Fearful [] Anxious [] Often cries [] Exhaustion [] Unable to work [] Unable to attend yarsanism [] Unable to walk/stand [] Unable to read [] Unable to drive [] Unable to eat/drink [] Unable to sleep [] Unable to be with family [] Patient intubated [] Other: Summary Time spent with patient 5 min
[2025-09-11 11:20] VITALS: BP 115/57; PULSE 84; RESP 20; TEMP 36.9; O2SAT 94
--- OUTSIDE RECORDS SUMMARY | 2025-09-11 12:44 | XMS_ITS | Clinical Summary ---
Author Organization [facility] Address [address] [place] [address] Phone Care Team Providers Care Safety Glass Installer Name Role Phone Unavailable Primary Care Provider [...] CDT 0 Active naloxone (NARCAN) 4 mg/spray [place], Non-Aerosol EMERGENCY USE ONLY: Administer 1 spray [...] on file Legal Sex Male 8:56 PM SEX THERAPIST Gender Identity Not on file Sexual Orientation [...] Payer ID:Not on file Type:RX Commercial Address: [place], [place] [address] [place] [address] [facility] [place] [address] Advance Directives For more information, please contact: [phone] * Full Code (Latest Code Status on File) Date Activated Date Inactivated Comments 05/25/2020 1:39 AM 05/29/2020 5:16 PM
--- OUTSIDE RECORDS SUMMARY | 2025-09-11 12:44 | XMS_ITS | Clinical Summary ---
Author Organization [facility] Address [address] Ariasn: Epic Prelude [place]T [place] [address] Care Team Providers Care Rock Breaker Name Role Phone Unavailable Primary Care Provider Unavailabl e Allergies No known active allergies Medications insulin glargine (LANTUS) 100 unit/mL injection Inject 25 Units by subcutaneous injection daily at bedtime. 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
--- OUTSIDE RECORDS SUMMARY | 2025-09-11 12:46 | XMS_ITS | Encounter Summary ---
Author Organization [facility] Address [address] [address] Phone Care Team Providers Care Product Builder Name Role Phone Angelique White GRAB HOOKER Primary Care Provider [phone] [phone] Reason for Referral * Consultation (Routine) - Closed Specialty Diagnoses / Procedures Referred By Contanatoly t Referred To Contact Nephrology Diagnoses Acute nontraumatic kidney injury, not otherwise specified (HCC) Hematuria, not otherwise specified Estefany Gan MD [address] [place] [address] Phone: tel: fax: Ariana Betts MD [address] [address] Phone: tel: fax: Referral ID Status Reason Start Date Expiration Date V isits Requested Visits Authorized [id number] Closed Consult and Treat 12/15/2025 06/14/2026 1 1 Encounter Details Date Type Department Care Team (Late st Contact Info) Description 06/14/2025 Transcribe Orders [facility] [place], [facility] [address] [address] Estefany Gan MD [address] [place] [address] Acute nontraumatic kidney injury, not [...] specified documented in this encounter Care Teams Product Builder Relationship Specialty Start Date End Date Angelique White NP [address] [place] [address] PCP - General Nurse Practitioner 06/14/25 documented as of this encounter
--- OUTSIDE RECORDS SUMMARY | 2025-09-11 12:46 | XMS_ITS | Clinical Summary ---
Author Organization [facility] Address [address] [place] [address] Phone Care Team Providers Care Invoice Coder Name Role Phone Angelique White PHARMACY TECH Primary Care Provider [phone] [phone] Encounters Date Type Department Care Team Description 06/19/2025 Documentation Only [facility], [facility] [address] [place] [address] [place] [address] Ariana Betts MD 06/19/2025 Documentation Only [employer], [place] [id number] [place] [address] Ariana Betts MD 06/15/2025 Orders Only [facility], [place] [id number] [place] [address] Acute nontraumatic kidney injury, not otherwise specified (HCC); Hematuria, not otherwise specified 06/14/2025 Office Communication [facility], [facility] [address] [address] [place] [address] Ariana Betts MD 06/14/2025 Transcribe Orders [facility], [facility] [address] [place] [address] Estefany Gan MD Acute nontraumatic [...] of Phone Billing Address Personal/Family Self 1970 [address] [place] 1,[place],3 ([place]) Care Teams Invoice Coder Relationship Specialty Start Date End Date Angelique White NP [address] [place] [address] PCP - General Nurse Practitioner 06/14/25
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
[2025-09-11 15:38] VITALS: BP 134/85; PULSE 80; RESP 18; TEMP 37; O2SAT 95
[2025-09-11 16:25] VITALS: BP 134/85; PULSE 101; RESP 18; TEMP 37; O2SAT 95
== END 2025-09-11 16:26 | disposition home or self-care (01) ==
LOC: ER 17:17 → MEDSURG 17:55
PROVIDERS: Admitting Provider Internal Medicine; Emergency Provider Emergency Medicine; PCP Nurse Practitioner; Visit Provider Internal Medicine
DX: E11.65 Type 2 diabetes mellitus with hyperglycemia (principal); F15.929 Other stimulant use, unspecified with intoxication, unspecified; E86.0 Dehydration; Z79.84 Long term (current) use of oral hypoglycemic drugs; Z79.4 Long term (current) use of insulin; K21.9 Gastro-esophageal reflux disease without esophagitis; Z85.118 Personal history of other malignant neoplasm of bronchus and lung
CPT/HCPCS: 36415; 36416; 36600; 70450; 70486; 71045; 80048; 80051; 80053; 80306; 80307; 81001; 82009; 82330; 82805; 82962; 83605; 83735; 84443; 84484; 85025; 87040; 93005; 96361; 96372; 96374; 99285; G0378; J1815; J3480; J7030; J9999